=== PATIENT | female | born 1960 | race Caucasian/White ===

== ENCOUNTER 2020-05-19 11:54 | Emergency (ER) | payer OTHER, SELFPAY ==
[2020-05-19 12:28] VITALS: BP 129/82; PULSE 72; RESP 16; TEMP 36.4; O2SAT 100
--- NOTE | 2020-05-19 12:51 | ED.URI ---
HPI - URI/Sore Throat General Chief Complaint: Upper Respiratory Infection Stated Complaint: sore throat Time Seen by Provider: 05/19/20 12:51 Source: patient Mode of arrival: ambulatory Limitations: no limitations History of Present Illness HPI Narrative: Marlyn Valverde is a 59 yo female withno PMH who [facility] with 3 days of sore throat and runny nose, denies fever, denies nausea vomiting or diarrhea, denies breathing problems, states that sore throat is getting worse. She is around her grandchild and daughter who also has a similar symptoms nobody has been screened for Covid and no one intends to take the vaccine at this moment Related Data Allergies Allergy/AdvReac Type Severity Reaction Status Date / Time codeine Allergy Unknown Unknown Verified 05/19/20 12:17 penicillin G Allergy Unknown Itching Verified 05/19/20 12:17 Penicillins Allergy Unknown ITCHING Verified 05/19/20 12:17 Review of Systems Review of Systems: Narrative: CONSTITUTIONAL: Denies fever, chills, sweats. EYES: Denies visual changes, redness, discharge. ENT: Has rhinorrhea, has congestion, has sore throat, no otalgia. CARDIOVASCULAR: Denies chest pain, palpitations, edema. RESPIRATORY: Denies dyspnea, wheezing, cough GASTROINTESTINAL: Denies abdominal pain, nausea, vomiting, diarrhea. GENITOURINARY: Denies dysuria, hematuria, abnormal discharge SKIN: Denies rash or itching. NEUROLOGIC: Denies numbness, or focal weakness. PSYCHIATRIC: Denies anxiety or depression. PMFSH Past Medical History Medical History No acute medical problems Family History Family History Sibling Family history of lung cancer Family history of primary malignant neoplasm of liver Social History Social History Smoking status: Never smoker Alcohol intake: never Comments At time of signature, I agree with nursing past medical, surgical, social and family history. There is no relevant family history pertinent to the presenting complaint. Exam Narrative: Exam Narrative: GENERAL: This is a well-nourished, well-developed patient, in mild distress. HEAD: normocephalic, atraumatic. EYES:Sclera clear/white. Vision is grossly intact. EARS: External ears normal, auditory canals clear and without drainage, TMs normal without perforation. Hearing grossly intact. NOSE: External nose normal without nasal discharge, nares with redness, mild rhinorrhea. THROAT: Mucous membranes moist, posterior pharynx erythema with redness particularly on the left posterior pharynx NECK: Neck supple, non-tender CARDIOVASCULAR: Regular rate and rhythm without murmurs, gallops, or rubs. RESPIRATORY: Clear to auscultation. Breath sounds equal bilaterally. No wheezes, rales, or rhonchi. GASTROINTESTINAL: Abdomen soft, SKIN: warm, intact with no suspicious lesions or rash, good texture and turgor. NEURO: awake, alert, and oriented to person, place and time. There were no obvious focal neurologic abnormalities. Steady gait EXTREMITIES: Normal range of motion. BACK: Nontender without deformity Course Course Emergency Course: Patient comes to [facility] with complaints of sore throat and runny nose for the last 3 days; daughter and grandson have similar symptoms no one has been vaccinated for Covid Covid done-neg strep done - neg Zyrtec and flonase, cepacol lozenges- salt water gargle as needed for sore throat Vital Signs Vital signs: Vital Signs Temperature 97.5 F L 05/19/20 12:28 Pulse Rate 72 05/19/20 12:28 Respiratory Rate 16 05/19/20 12:28 Blood Pressure 129/82 05/19/20 12:28 Pulse Oximetry 100 05/19/20 12:28 Temperature 97.5 F L 05/19/20 12:28 Pulse Rate 72 05/19/20 12:28 Respiratory Rate 16 05/19/20 12:28 Blood Pressure 129/82 05/19/20 12:28 Pulse Oximetry 100 05/19/20 12:28
== END 2020-05-19 13:29 | disposition home or self-care (01) ==
PROVIDERS: Emergency Provider Nurse Practitioner; PCP Internal Medicine
DX: J06.9 Acute upper respiratory infection, unspecified (principal); Z20.822 Contact with and (suspected) exposure to COVID-19; E78.00 Pure hypercholesterolemia, unspecified
CPT/HCPCS: 87081; 87426; 87880; 99213; C9803; G0463

== ENCOUNTER 2021-10-03 15:05 | Outpatient (CLI) | payer OTHER, SELFPAY ==
--- NOTE | ~2021-10-03 | US_ITS ---
EXAMINATION: US pelvic complete w TV DATE: 10/03/2021 16:12 INDICATION: Pelvic pain. TECHNIQUE: Multiple transabdominal sonographic images of the pelvis were obtained. COMPARISON: None. FINDINGS: The uterus measures 8.6 x 3.0 x 4.7 cm. There is no free fluid in the pelvis. The endometrial complex measures 2 mm in thickness. The right ovary measures 2.7 x 1.2 x 1.2 cm. The left ovary measures 1.3 cm. IMPRESSION: 1. Normal pelvis. Reviewed, dictated and finalized at location A. IMPRESSION: 1. Normal pelvis.
== END 2021-10-03 15:06 | disposition home or self-care (01) ==
PROVIDERS: PCP Internal Medicine; Visit Provider Nurse Practitioner
DX: R10.2 Pelvic and perineal pain (principal)
CPT/HCPCS: 76830; 76856

== ENCOUNTER 2021-10-06 17:04 | Outpatient (CLI) | payer OTHER, SELFPAY ==
--- NOTE | ~2021-10-06 | XR_ITS ---
EXAMINATION: XR hip LT min 3V w AP pelvis DATE: 10/06/2021 17:25 INDICATION: Left hip pain. TECHNIQUE: An anteroposterior view of the pelvis and 3 views of left hip were obtained. COMPARISON: None. FINDINGS: Bone alignment is normal. No fracture. There is mild osteoarthritis of the hips characteriz ed by tiny osteophytes. No joint space narrowing. IMPRESSION: 1. Mild osteoarthritis of the hips. Reviewed, dictated and finalized at location A.
== END 2021-10-06 17:05 | disposition home or self-care (01) ==
PROVIDERS: PCP Internal Medicine; Visit Provider Internal Medicine
DX: M25.552 Pain in left hip (principal); M16.0 Bilateral primary osteoarthritis of hip
CPT/HCPCS: 73502

== ENCOUNTER 2021-12-20 15:30 | Outpatient (RCR) | payer OTHER, SELFPAY ==
--- NOTE | 2021-11-14 11:59 | PTOPEVAL1 ---
Assessment and note entered by Leah Prasad, PT Evaluation Information Assessment Status Evaluation Diagnosis L trochanteric bursitis, L SI joint pain Reported Pain Level Pain Score 2: Self Report Additional Pain Score Comments Few months back missed a few steps then landed hard on left leg. Steroid shot about a month ago and the pain has improved pain significantly. Some days are better then others. Feels maybe 80-90% improved. Assessment PT Clinical Summary Pt presents after loosing footing on a ladder a few months ago. Reports approx one month ago recieved shots in left low back and left hip which helped her pain significantly. She reports she still has pain that varies from 0-7/10 in intensity. Evaluation shows leg length difference with R inominate depression, (+) FADDIR testing bilat, decreased range on R hip flexion compared to left, full lumbar AROM without increased pain. Pt also demo's poor lumbopelvic stabilizer strength jeremy transverse abdominal musculature. 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 Muscle energy technique today was able to correct alignment however pt educated likely would return to poor alignment secondary to weakness in stabilizer musculature. Thus Pt will benefit from physical therapy to continue to reassess pelvic alignment, correction of alignment, strengthening of lumbopelvic musculature, and education/ empowerment to maintain alignment independently. Plan of Care Interventions Electrical Stimulation,Hot Pack/Cold Pack,Manual Therapy,Neuro Re-education,Therapeutic Activities, Therapeutic Exercise,Self-Care/Home Management, Ultrasound Other Interventions Taping, possible SI belt to assist in maintaining alignment PT Services Indicated Yes Treatment Frequency and 2x weekly x 4 weeks Duration These treatments will address the objective and functional deficits as defined above. The patient will be advanced safely and appropriately in order for the patient to progress towards his/her prior level of function. Additional exercises will be introduced and as well as a comprehensive home exercise program upon discharge, if needed, ?to ensure carryover of functional gains achieved in the clinic. This treatment plan has been reviewed and agreement upon by the patient.
--- NOTE | 2021-11-14 12:37 | PTOPEVAL1 ---
Assessment and note entered by Leah Prasad, PT Evaluation Information Assessment Status Evaluation Diagnosis L trochanteric bursitis, L SI joint pain Reported Pain Level Pain Score 2: Self Report Additional Pain Score Comments Few months back missed a few steps then landed hard on left leg. Steroid shot about a month ago and the pain has improved pain significantly. Some days are better then others. Feels maybe 80-90% improved. Assessment PT Clinical Summary Pt presents after loosing footing on a ladder a few months ago. Reports approx one month ago received shots in left low back and left hip which helped her pain significantly. She reports she still has pain that varies from 0-7/10 in intensity. Evaluation shows leg length difference with R inominate depression, (+) FADDIR testing bilat, decreased range on R hip flexion compared to left, full lumbar AROM without increased pain. Pt also demo's poor lumbopelvic stabilizer strength jeremy transverse abdominal musculature. 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 Muscle energry technique today was able to correct alignment however pt educated likely would return to poor alignment secondary to weakness in stabilizer musculature. Thus Pt will benefit from physical therapy to continue to reassess pelvic alignment, correction of alignment, strengthening of lumbopelvic musculature, and education/ empowerment to maintain alignment independently. Plan of Care Interventions Electrical Stimulation,Hot Pack/Cold Pack,Manual Therapy,Neuro Re-education,Therapeutic Activities, Therapeutic Exercise,Self-Care/Home Management, Ultrasound Other Interventions Taping, possible SI belt to assist in maintaining alignment PT Services Indicated Yes Treatment Frequency and 2x weekly x 4 weeks Duration These treatments will address the objective and functional deficits as defined above. The patient will be advanced safely and appropriately in order for the patient to progress towards his/her prior level of function. Additional exercises will be introduced and as well as a comprehensive home exercise program upon discharge, if needed, ?to ensure carryover of functional gains achieved in the clinic. This treatment plan has been reviewed and agreement upon by the patient.
--- NOTE | 2021-12-20 16:04 | PTOPEVAL1 ---
Assessment and note entered by Taylor Telol, PT Evaluation Information Assessment Status Discharge Diagnosis L trochanteric bursitis, L hip pain Subjective Information Marlyn reports: pain is less, the injections really helped her pain, is better, doing exercises at home, ready to be finished with therapy; Reported Pain Level Pain Score Self Report Additional Pain Score Comments pain range of 0-3/10; bad ache, discomfort in L buttock area; increased pain with standing or sitting too long- sit over few hours or stand 3 hours; decrease pain with ice, stretching and exercises; take tylenol- PRN; Assessment PT Clinical Summary Marlyn has received 11 PT sessions. Compared to the initial evaluation: pain rating has decreased; strength of trunk and hip has improved; flexibility of hip has improved and no longer painful with hip ROM; Education has been completed for HEP and posture correction. The goals were achieved. Discharge PT. She agrees to d/c and is to continue with the exercises. Plan of Care PT Services Indicated No These treatments will address the objective and functional deficits as defined above. The patient will be advanced safely and appropriately in order for the patient to progress towards his/her prior level of function. Additional exercises will be introduced and as well as a comprehensive home exercise program upon discharge, if needed, ?to ensure carryover of functional gains achieved in the clinic. This treatment plan has been reviewed and agreement upon by the patient.
== END 2021-12-21 07:20 | disposition home or self-care (01) ==
LOC: ANHPT 15:30
PROVIDERS: PCP Internal Medicine; Visit Provider Orthopaedic Surgery
DX: M25.552 Pain in left hip (principal)
CPT/HCPCS: 97014; 97110; 97112; 97140; 97161; G0283

== ENCOUNTER 2022-01-22 17:58 | Emergency (ER) | payer OTHER, SELFPAY ==
[2022-01-22 18:09] VITALS: BP 122/70; PULSE 75; RESP 16; TEMP 37.4; O2SAT 99
--- NOTE | 2022-01-22 19:11 | ED.GENADULT ---
HPI - General Adult General Chief complaint: Upper Respiratory Infection Stated complaint: Abdominal Pain/Nausea/ Vomiting/Diarrhea, Cough Time Seen by Provider: 01/22/22 19:11 Source: patient, RN notes reviewed and old records reviewed Mode of arrival: ambulatory Limitations: no limitations History of Present Illness HPI narrative: 61-year-old female presents to the [facility] with complaints cough, sinus congestion since 05/17 this morning. Denies any fevers. Has taken Tylenol cold and Sinus. Patient also concern for her IBS. His wanting further evaluation. He came off her amitriptyline and started on a probiotic 1 week ago. Concern for IBS and wanting further evaluation and testing. Offered to send patient to the emergency room which she declined will follow up with her GI doctor in the morning. Related Data Home Medications Medication Instructions Recorded Confirmed estradiol 1 mg tablet 0.5 mg PO DAILY 04/18/21 01/22/22 medroxyprogesterone 2.5 mg tablet 2.5 mg PO DAILY 04/18/21 01/22/22 pantoprazole 40 mg tablet,delayed 40 mg PO QAM 04/18/21 01/22/22 release spironolactone 50 mg tablet 50 mg PO DAILY 04/18/21 01/22/22 Allergies Allergy/AdvReac Type Severity Reaction Status Date / Time codeine Allergy Unknown Unknown Verified 01/22/22 18:22 penicillin G Allergy Unknown Itching Verified 01/22/22 18:22 Penicillins Allergy Unknown ITCHING Verified 01/22/22 18:22 Review of Systems Review of Systems: All systems reviewed & are unremarkable except as noted in HPI and below Constitutional: Constitutional: Reports no additional constitutional complaints Eyes: Eyes: Reports no additional eye complaints ENT: Reports as per HPI and Reports nasal congestion Cardiovascular: Cardiovascular: Reports no additional cardiovascular complaints, Denies chest pain and Denies dyspnea Respiratory: Respiratory: Reports no additional respiratory complaints, Denies chest congestion, Denies cough and Denies dyspnea Gastrointestinal: Gastrointestinal: Reports as per HPI, Reports abdominal pain, Reports bloating, Denies nausea and Denies vomiting Musculoskeletal: Musculoskeletal: Reports no additional musculoskeletal complaints Integumentary/Breasts: Skin/Breast: Reports system reviewed and no additional complaints, except as docu Neurologic: Reports system reviewed and no additional complaints, except as documented Psychiatric: Psychiatric: Reports no additional psychiatric complaints Allergic/Immunologic: Allergic/Immunologic: Reports no additional allergic/immunologic complaints PMFSH Past Medical History Medical History Hx of gallstones No acute medical problems Surgical History Surgical History History of mastopexy Hx of breast augmentation Hx of carpal tunnel repair Hx of ovarian cystectomy Family History Family History Sibling Family history of lung cancer Family history of primary malignant neoplasm of liver Social History Social History Smoking status: Unknown if ever smoked Alcohol intake: never Comments At the time of my signature, I reviewed and agree with the nursing past medical, surgical, social, and family history. There is no relevant family history pertinent to the patient complaint. Exam Const: General: cooperative, healthy appearing, comfortable, no acute distress, well developed, alert, average body habitus and well nourished Nutritional Appearance: average body habitus and well nourished Orientation/consciousness: patient oriented x3 Limitations: no limitations HENMT: Head: normal to inspection Ears: hearing grossly normal bilaterally and external ears normal Face/Nose/Sinus: Normal external nose present, Normal nares present, Normal nasal mucous membranes and turbinates
== END 2022-01-22 19:37 | disposition home or self-care (01) ==
PROVIDERS: Emergency Provider Nurse Practitioner; PCP Internal Medicine
DX: J06.9 Acute upper respiratory infection, unspecified (principal); K58.9 Irritable bowel syndrome, unspecified; Z20.822 Contact with and (suspected) exposure to COVID-19
CPT/HCPCS: 87426; 87804; 99213; C9803; G0463

== ENCOUNTER 2022-01-30 09:55 | Outpatient (CLI) | payer OTHER, SELFPAY ==
--- NOTE | ~2022-01-30 | CT_ITS ---
EXAMINATION: CT abdomen pelvis wo con DATE: 01/30/2022 10:18 INDICATION: Abdominal pain and weight loss TECHNIQUE: Computed tomography (CT) of the abdomen and pelvis was performed without intravenous contr ast. The dose-length product (DLP) was 215.43 mGy-cm. Automated exposure control and iterative recons truction technique were employed. COMPARISON: None FINDINGS: Minimal dependent atelectasis is present in the lung bases. The heart size is normal. The g allbladder is surgically absent. Punctate calcifications in an otherwise normal spleen likely represe nt healed granulomatous disease. The liver, pancreas, and adrenal glands are normal. No pathologicall y enlarged abdominal or pelvic lymph nodes are identified. There is no free intraperitoneal gas or ev idence of bowel obstruction. There is mild lumbar spondylosis. There is a tiny umbilical hernia conta ining fat. IMPRESSION: 1. No CT correlate for the patient's symptoms. Reviewed, dictated and finalized at location A. TECH
[2022-01-30 10:55] LABS: Basophils Percent Auto 0.4 % (0.2-1.2); Eosinophils Percent Auto 0.4 % (0-4.4); Hematocrit 42.7 % (37.0-47.0); Immature Granulocyte Absolute 0.01 K/mm3 (0.00-0.031); Immature Granulocyte Percent A 0.2 % (0-0.5); Lymphocytes Absolute Auto 1.61 K/mm3 (0.9-3.2); Lymphocytes Percent Auto 28.8 % (18.3-44.2); Mean Corpuscular HGB Conc 32.8 g/dl (32-36); Mean Corpuscular Hemoglobin 30.8 pg (26-34); Mean Corpuscular Volume 94.1 fl (80-100); Mean Platelet Volume 10.5 fl (7.4-10.4); Monocytes Absolute Auto 0.5 K/mm3 (0.1-0.6); Neutrophils Absolute Auto 3.5 K/mm3 (1.3-6.7); Neutrophils Percent Auto 62.2 % (45.5-73.1); Platelet Count Result 234 k/mm3 (150-375); Red Blood Count 4.54 M/mm3 (4.2-5.4); Red Cell Distribution Width 11.9 % (11.5-14.5); White Blood Count 5.6 K/mm3 (4.5-10.0)
[2022-01-30 11:05] LABS: Alanine Aminotransferase 62 U/L (6-35); Albumin Level 4.4 g/dL (3.5-5.1); Alkaline Phosphatase 87 U/L (38-126); Amylase 75 U/L (30-110); Anion Gap 6 mmol/L (8-16); Aspartate Amino Transferase 45 U/L (14-36); Bilirubin,Total 0.5 mg/dL (0.2-1.3); Blood Urea Nitrogen 12 mg/dL (7-17); Calcium 9.2 mg/dL (8.4-10.2); Carbon Dioxide 30 mmol/L (22-30); Chloride 100 mmol/L (98-107); Estimated Glomerular Filt Rate > 60; Glucose 86 mg/dL (65-110); Lipase 90 U/L (23-300); Sodium 136 mmol/L (137-145)
[2022-01-30 11:13] LABS: Add Urine Microscopic? YES; Appearance Urine Slightly Cloudy (Clear); Bilirubin Urine Negative (Negative); Blood Urine Negative (Negative); Color Urine Yellow (Yellow); Glucose Urine UA Negative (Negative); Ketones Urine 1+ mg/dL (Negative); Leukocyte Esterase Ur Negative LEU/UL (NEGATIVE); Nitrate Urine Negative (Negative); Protein Urine Trace mg/dL (Negative); Urobilinogen Urine 0.2 mg/dL (<2.0); pH Urine 6.5 (5.0-9.0)
[2022-01-30 11:19] LABS: Bacteria Urine Trace /hpf; Mucus Urine Heavy /lpf; Squamous Epithelial Cell Urine Many /hpf (Few); WBC Urine 0-3 /hpf (0-3)
== END 2022-01-30 09:56 | disposition home or self-care (01) ==
PROVIDERS: PCP Internal Medicine; Visit Provider Internal Medicine
DX: R10.9 Unspecified abdominal pain (principal)
CPT/HCPCS: 36415; 74176; 80053; 81001; 82150; 83690; 85025

== ENCOUNTER 2022-06-12 14:49 | Outpatient (CLI) | payer OTHER, SELFPAY ==
--- NOTE | ~2022-06-12 | MM_ITS ---
EXAMINATION: MM scrn jaylon implant BI w enrique HISTORY: Screening mammogram TECHNIQUE: Craniocaudal and mediolateral oblique 3-D tomosynthesis images with implant displacement a nd synthetic 2-D images were generated. Craniocaudal and mediolateral oblique views of the breasts wi thout implant displacement were obtained using full field digital mammography. CAD analysis was submi tted and interpreted. COMPARISON: 06/20/2015, 06/16/2014 bilateral implant screening mammogram BREAST PARENCHYMAL COMPOSITION: There are scattered areas of fibroglandular density. FINDINGS: Status post bilateral augmentation mammoplasty. New 4 mm circumscribed mass in the posterior mid inner left breast; diagnostic left mammogram and lef t breast ultrasound examination are recommended. Otherwise there is no evidence of suspicious mass, calcification, or architectural distortion to sugg est malignancy in either breast. There has been no other suspicious interval change. IMPRESSION: 1. New 4 mm mass in the posterior inner mid left breast 2. Diagnostic left mammogram and left breast ultrasound examination are recommended BI-RADS Category 0: Incomplete: Needs additional imaging evaluation. Reviewed, dictated and finalized at location A. IMPRESSION: 1. New 4 mm mass in the posterior inner mid left breast 2. Diagnostic left mammogram and left breast ultrasound examination are recomme nded BI-RADS Category 0: Incomplete: Needs additional imaging evaluation.
== END 2022-06-12 14:50 | disposition home or self-care (01) ==
PROVIDERS: PCP Internal Medicine; Visit Provider Obstetrics & Gynecology Gynecology
DX: Z12.31 Encounter for screening mammogram for malignant neoplasm of breast (principal); N63.20 Unspecified lump in the left breast, unspecified quadrant; Z98.82 Breast implant status
CPT/HCPCS: 77063; 77067

== ENCOUNTER 2022-07-05 12:02 | Outpatient (CLI) | payer OTHER, SELFPAY ==
--- NOTE | ~2022-07-05 | MMUS_ITS ---
EXAMINATION: MM diag jaylon implant LT w enrique, US breast LT limited HISTORY: Possible left breast mass on screening mammogram TECHNIQUE: Additional 3-D tomosynthesis images with implant displacement of the left breast were perf ormed and synthetic 2-D images were generated. Mediolateral view of the left breast without implant displacement was obtained using full field digital mammography. CAD analysis was submitted and interp reted. High resolution limited left breast ultrasound was performed. COMPARISON: 06/12/2022, 06/20/2015, 06/16/2014 FINDINGS: MAMMOGRAPHIC FINDINGS: There is a 6 mm oval, circumscribed, equal density mass in the middle third of the inner breast at th e 9:00 location, 7 cm from the nipple. ULTRASOUND: There is a small left breast cyst corresponding to the mammographic finding in question. No suspiciou s cystic or solid mass is identified. IMPRESSION: 1. No mammographic or sonographic evidence of malignancy. 2. Recommend routine screening mammography in one year. BI-RADS Category 2: Benign finding(s). Reviewed, dictated and finalized at location A. IMPRESSION: 1. No mammographic or sonographic evidence of malignancy. 2. Recommend routine screening mammography in one year. BI-RADS Category 2: Benign finding(s).
== END 2022-07-05 12:03 | disposition home or self-care (01) ==
PROVIDERS: PCP Internal Medicine; Visit Provider Obstetrics & Gynecology Gynecology
DX: R92.8 Other abnormal and inconclusive findings on diagnostic imaging of breast (principal)
CPT/HCPCS: 76642; 77061; 77065; G0279

== ENCOUNTER 2022-09-11 12:38 | Outpatient (CLI) | payer OTHER, SELFPAY ==
--- NOTE | ~2022-09-11 | CT_ITS ---
Non-contrast Head CT History: Headache Technique: Axial non-contrast imaging of the brain was performed. Dose reduction technique was used on this scan by utilizing automated exposure control and iterative reconstruction technique. The dose -length product (DLP) was 605.33 mGy-cm. Findings: There is no evidence of intracranial hemorrhage, mass lesion, or acute infarct. Brain par enchyma appears normal. The ventricles and subarachnoid spaces are normal in size. The calvarium ap pears normal. The visualized paranasal sinuses and mastoid air cells are clear. Impression: No significant abnormality seen. Reviewed, dictated and finalized at location . Impression: No significant abnormality seen.
== END 2022-09-11 12:39 | disposition home or self-care (01) ==
PROVIDERS: PCP Internal Medicine; Visit Provider Internal Medicine
DX: R51.9 Headache, unspecified (principal)
CPT/HCPCS: 70450

== ENCOUNTER 2023-01-08 14:15 | Outpatient (RCR) | payer OTHER, SELFPAY ==
--- NOTE | 2022-11-21 10:39 | OPREHPOC ---
Outpatient Therapy Plan of Care This is a Multidisciplinary Plan of Care that may contain components documented by all disciplines (PT, OT, and ST.) PT Problem 1 PT Problem #1 Knowledge Deficit PT Goal 1 Goal Pt to be IND with issued HEP Target Visit 4 PT Problem 2 PT Problem #2 Pain PT Goal 1 Goal Pt to report pain no greater than 3/10 in the last week. Target Visit 4 PT Goal 2 Goal Pt to report 75% improvement in overall symptoms. Target Visit 4 PT Problem 3 PT Problem #3 Impaired Strength PT Goal 1 Goal Pt to improve hip abduction strength to grossly 4+ /5 Target Visit 4 PT Goal 2 Goal Pt to be able to lift 30lb from ground level without compensations. Target Visit 4
--- NOTE | 2022-11-21 10:39 | PTOPEVAL1 ---
Assessment and note entered by Mitchell Estrada, PT, DPT Evaluation Information Assessment Status Evaluation Diagnosis ez hip pain Onset 3 months Subjective Information Pt states she has been having ez hip pain for multiple months. She states she got in injection last week and this really seemed to help. She states prior to the injection she was barely able to walk. She states she recently joined a gym. Pt is retired. Reported Pain Level Pain Score 4: Self Report Assessment PT Clinical Summary Marlyn presents to therapy today for her initial evaluation with a diagnosis of ez hip pain. Today she demonstrates good hip ROM ez, with minor decreases in hip strength ez, especially hip abduction strength. She demonstrates significant tenderness to palpation of ez piriformis muscles. Skilled therapy services are indicated to address the deficits noted above, to improve hip strength, and to return to PLOF without limitations. Plan of Care Interventions Electrical Stimulation,Gait Training,Hot Pack/Cold Pack,Manual Therapy,Neuro Re-education,Patient/ Caregiver Educati,Therapeutic Activities, Therapeutic Exercise,Ultrasound PT Services Indicated Yes Treatment Frequency and 1x/wk for 4 visits Duration These treatments will address the objective and functional deficits as defined above. The patient will be advanced safely and appropriately in order for the patient to progress towards his/her prior level of function. Additional exercises will be introduced and as well as a comprehensive home exercise program upon discharge, if needed, ?to ensure carryover of functional gains achieved in the clinic. This treatment plan has been reviewed and agreement upon by the patient.
--- NOTE | 2022-12-19 13:30 | PTOPPROG ---
Assessment and note entered by Mitchell Estrada, PT, DPT Evaluation Information Assessment Status Progress Diagnosis ez hip pain Onset 3 months Subjective Information Pt states she has been doing well, but continues to have good days and bad days. Pt states she cannot tell if she has made any progress with therapy, but reports more good days then bad. She states she is still going to the gym 4x a week. Pt states she had sculpture injections and states these were around the same time her pain started in the same location. Assessment PT Clinical Summary Marlyn presents to therapy today for her progress report following 4 visits of skilled therapy to treat her diagnosis of ez hip pain. Today she continues to have decreased hip strength in all planes. She also continues to have significant tenderness to palpation in her ez piriformis muscle belly. Continuation of therapy services are indicated to address the deficts noted above, to improve hip strength, to decreased pain, and to return to PLOF without limitations. Plan of Care Interventions Electrical Stimulation,Gait Training,Hot Pack/Cold Pack,Manual Therapy,Neuro Re-education,Patient/ Caregiver Educati,Therapeutic Activities, Therapeutic Exercise,Ultrasound PT Services Indicated Yes Treatment Frequency and 1x/wk for 4 visits Duration These treatments will address the objective and functional deficits as defined above. The patient will be advanced safely and appropriately in order for the patient to progress towards his/her prior level of function. Additional exercises will be introduced and as well as a comprehensive home exercise program upon discharge, if needed, ?to ensure carryover of functional gains achieved in the clinic. This treatment plan has been reviewed and agreement upon by the patient.
--- NOTE | 2023-02-01 08:03 | PCPTNOTE ---
Patient called & cancelled scheduled appointment this date due to having Covid. She also states she wants to get an MRI prior to returning.
--- NOTE | 2023-02-15 13:51 | PTOPDC ---
Assessment and note entered by Mitchell Estrada, PT, DPT Evaluation Information Assessment Status Discharge - Pt Not Present Diagnosis ez hip pain Onset 3 months Subjective Information Called pt to follow up, she states she had her MRI but has no follow up scheduled. She states she plans to come back to therapy if her doctor recommends it. Assessment PT Clinical Summary Pt will be discharged at this time.
== END 2023-02-15 15:28 | disposition home or self-care (01) ==
LOC: ANHGOSHPT 14:15
PROVIDERS: PCP Internal Medicine; Visit Provider Physician Assistant Surgical
DX: M70.61 Trochanteric bursitis, right hip (principal)
CPT/HCPCS: 97110; 97140; 97161; 97530

== ENCOUNTER 2023-01-12 15:44 | Emergency (ER) | payer OTHER, SELFPAY ==
--- NOTE | 2023-01-12 15:47 | ED.URI ---
HPI - URI/Sore Throat General Chief Complaint: Upper Respiratory Infection Stated Complaint: Headache, Body Aches, Chills Time Seen by Provider: 01/12/23 16:10 Source: patient and RN notes reviewed Mode of arrival: ambulatory Limitations: no limitations History of Present Illness HPI Narrative: 62-year-old female presents concern for headache, cough, runny nose, body aches started last night. She reports she is taking Tylenol. She denies nausea, vomiting, diarrhea. MD elicited complaint: cough and nasal congestion Related Data Home Medications Medication Instructions Recorded Confirmed estradiol 1 mg tablet 0.5 mg PO DAILY 04/18/21 01/12/23 medroxyprogesterone 2.5 mg tablet 2.5 mg PO DAILY 04/18/21 01/12/23 pantoprazole 40 mg tablet,delayed 40 mg PO QAM 04/18/21 01/12/23 release spironolactone 50 mg tablet 50 mg PO DAILY 04/18/21 01/12/23 amitriptyline 10 mg tablet 10 mg PO QHS 02/05/22 01/12/23 montelukast 10 mg tablet mg 01/12/23 Allergies Allergy/AdvReac Type Severity Reaction Status Date / Time codeine Allergy Unknown Unknown Verified 01/12/23 15:57 Penicillins Allergy Unknown ITCHING Verified 01/12/23 15:57 Review of Systems Review of Systems: CONSTITUTIONAL: Reports malaise, chills, sweats EYES: Denies visual changes, redness, or discharge. ENT: Reports rhinorrhea, congestion, and sore throat. CARDIOVASCULAR: Denies chest pain, palpitations, or edema. RESPIRATORY: Reports cough. Denies dyspnea. GASTROINTESTINAL: Denies abdominal pain, nausea, vomiting, diarrhea SKIN: Denies rash or itching. MUSCULOSKELETAL: Reports myalgia. NEUROLOGIC: Reports headache. All systems reviewed & are unremarkable except as noted in HPI and below PMFSH Past Medical History Medical History (Updated 01/12/23 @ 16:21 by Lavern Vasquez NP) GERD (gastroesophageal reflux disease) Hx of gallstones No acute medical problems Surgical History Surgical History History of mastopexy Hx of breast augmentation Hx of carpal tunnel repair Hx of ovarian cystectomy Family History Family History Sibling Family history of lung cancer Family history of primary malignant neoplasm of liver Social History Social History Smoking status: Unknown if ever smoked Alcohol intake: never Comments At time of signature, agree with nursing past medical, surgical, social and family history. There is no relevant family history pertinent to the presenting complaint Exam Narrative: GENERAL: Nontoxic appearing and in no acute distress. HEAD: Normocephalic EYES: PERRLA, conjunctivae clear ENT: Nares clear, turbinates edematous and erythematous, clear discharge. Mucous membranes moist. TM pearly white with dull light reflex bilaterally; no tragal tenderness. Oropharynx not erythematous without lesions. Tonsils not enlarged and without exudate, no drooling, no hoarseness, no trismus, uvula midline. NECK: Supple. No lymphadenopathy CHEST: Clear to auscultation, breath sounds equal. No wheezing, rhonchi, rales, or stridor. No respiratory distress, speaks in full sentences. HEART: Regular rate and rhythm. No murmur heard. SKIN: Warm, dry, no rash. NEURO: Alert and oriented x3. PSYCH: Normal mood and affect Course Course Emergency Course: Patient is aware of diagnosis, understands and agrees to treatment plan. Anticipatory guidance given. Patient agrees to follow-up as directed and is aware of reasons to seek care at the emergency department. Portions of this record may have been created with voice recognition software Level of Care: Express Care Visit Vital Signs Vital signs: Reviewed. MDM - URI/Sore Throat MDM Narrative Medical decision making narrative: Differential diagnosis considered: Evans virus, strep pharyngitis, allergic rhinitis, upper respiratory trac
[2023-01-12 15:58] VITALS: BP 124/78; PULSE 89; RESP 18; TEMP 36.6; O2SAT 99
== END 2023-01-12 16:27 | disposition home or self-care (01) ==
PROVIDERS: Emergency Provider Nurse Practitioner; PCP Internal Medicine
DX: U07.1 COVID-19 (principal); Z79.899 Other long term (current) drug therapy
CPT/HCPCS: 87426; 87804; 99213; C9803; G0463

== ENCOUNTER 2023-01-19 14:25 | Emergency (ER) | payer OTHER, SELFPAY ==
--- NOTE | ~2023-01-19 | XR_ITS ---
EXAMINATION: XR chest 2V 01/19/2023 14:49 INDICATION: Covid infection PROCEDURE: 2 view chest COMPARISON: No prior studies for comparison. FINDINGS: The lungs are clear. The cardiomediastinal silhouette is within normal limits. There are no pleural effusions. There is no pneumothorax suspected. IMPRESSION: 1: NO ACUTE CARDIOPULMONARY DISEASE. Reviewed, dictated and finalized at location A. MER BLOCKER
--- NOTE | 2023-01-19 14:29 | ECG_ITS ---
Measurements Intervals Crane Rate: 76 P: 70 IL: 149 QRS: 58 QRSD: 86 T: 74 QT: 358 QTc: 405 Interpretive Statements SINUS RHYTHM NONSPECIFIC T-WAVE ABNORMALITY BORDERLINE ECG NO PREVIOUS ECG AVAILABLE FOR COMPARISON Electronically Signed On 01-20-2023 11:47:45 AIR MOTOR REPAIRER by Sulaiman Glaser M.D.
[2023-01-19 14:38] VITALS: BP 129/79; PULSE 79; RESP 18; TEMP 36.6; O2SAT 100
[2023-01-19 14:49] LABS: Eosinophils Percent Auto 0.3 % (0-4.4); Hematocrit 43.1 % (37.0-47.0); Hemoglobin 13.9 g/dL (12.0-15.0); Immature Granulocyte Absolute 0.01 K/mm3 (0.00-0.031); Immature Granulocyte Percent A 0.3 % (0-0.5); Lymphocytes Percent Auto 35.9 % (18.3-44.2); Mean Corpuscular HGB Conc 32.3 g/dl (32-36); Mean Corpuscular Hemoglobin 29.3 pg (26-34); Mean Corpuscular Volume 90.7 fl (80-100); Mean Platelet Volume 10.2 fl (7.4-10.4); Monocytes Absolute Auto 0.4 K/mm3 (0.1-0.6); Monocytes Percent Auto 9.7 % (2.6-8.5); Neutrophils Percent Auto 53.8 % (45.5-73.1); Platelet Count Result 189 k/mm3 (150-375); Red Blood Count 4.75 M/mm3 (4.2-5.4); White Blood Count 3.6 K/mm3 (4.5-10.0)
[2023-01-19 15:05] LABS: Alanine Aminotransferase 271 U/L (6-35); Albumin Level 4.5 g/dL (3.5-5.1); Alkaline Phosphatase 144 U/L (38-126); Anion Gap 14 mmol/L (8-16); Aspartate Amino Transferase 184 U/L (14-36); Bilirubin,Total 0.6 mg/dL (0.2-1.3); Blood Urea Nitrogen 8 mg/dL (7-17); Calcium 9.8 mg/dL (8.4-10.2); Carbon Dioxide 22 mmol/L (22-30); Chloride 101 mmol/L (98-107); Estimated CRCL calculation 57 ml/min; Estimated Glomerular Filt Rate > 60; Glucose 101 mg/dL (65-110); Lipase 110 U/L (23-300); Potassium 4.1 mmol/L (3.4-5.0); Sodium 137 mmol/L (137-145)
[2023-01-19 15:13] LABS: INR 0.9; Partial Thromboplastin Time 25.6 SECONDS (22.3-36.8); Prothrombin Time 12.7 Seconds (11.1-14.7)
[2023-01-19 15:16] LABS: Troponin I < 0.012 ng/mL (0.000-0.034)
--- NOTE | 2023-01-19 18:06 | ED.GENADULT ---
HPI - General Adult General Chief complaint: Chest Pain Stated complaint: covid/ chest pain Time Seen by Provider: 01/19/23 17:48 Source: patient Mode of arrival: ambulatory Limitations: no limitations History of Present Illness HPI narrative: This is a 62-year-old female With PMH of IBS who presents to the ED with chief complaint of chest pain across the entire chest beginning yesterday and worse today. Reports she was COVID positive 7 days ago and since then has been having intermittent feelings of chest tightness and pain. Reports the pain seems to radiate/ wrap bilaterally around the chest and back. reports some cough but overall nonproductive. Denies hemoptysis, leg swelling, palpitations, abdominal pain, fevers, chills. Does take estradiol hormone. Related Data Home Medications Medication Instructions Recorded Confirmed estradiol 1 mg tablet 0.5 mg PO DAILY 04/18/21 01/12/23 medroxyprogesterone 2.5 mg tablet 2.5 mg PO DAILY 04/18/21 01/12/23 pantoprazole 40 mg tablet,delayed 40 mg PO QAM 04/18/21 01/12/23 release spironolactone 50 mg tablet 50 mg PO DAILY 04/18/21 01/12/23 amitriptyline 10 mg tablet 10 mg PO QHS 02/05/22 01/12/23 montelukast 10 mg tablet mg 01/12/23 Allergies Allergy/AdvReac Type Severity Reaction Status Date / Time codeine Allergy Unknown Unknown Verified 01/12/23 15:57 Penicillins Allergy Unknown ITCHING Verified 01/12/23 15:57 Review of Systems Review of Systems: All systems as dictated in [facility] Past Medical History Medical History (Updated 01/20/23 @ 00:00 by Kristal Royal) GERD (gastroesophageal reflux disease) Hx of gallstones No acute medical problems Surgical History Surgical History History of mastopexy Hx of breast augmentation Hx of carpal tunnel repair Hx of ovarian cystectomy Family History Family History Sibling Family history of lung cancer Family history of primary malignant neoplasm of liver Social History Social History Smoking status: Unknown if ever smoked Alcohol intake: never Exam Narrative: GENERAL: Well-appearing, well-nourished, and in no acute distress. HEAD: Normocephalic, atraumatic. EYES: PERRLA and EOMI. ENT: Nares clear, no rhinorrhea or epistaxis. Mucous membranes moist. Oropharynx without tonsillar hypertrophy exudate or other lesions. NECK: Supple. No adenopathy or masses. CHEST: No respiratory distress. Clear to auscultation. No wheezes rales or Rhonchi. mild chest wall tenderness bilaterally. HEART: Regular rate and rhythm. No murmur heard. Normal peripheral pulses. ABDOMEN: Soft, nontender, nondistended, normal active bowel sounds. MSK: Normal range of motion. No edema. Mild tenderness to the bilateral trapezius distributions. No midline spinal tenderness SKIN: Warm, dry, no rash. NEURO: Alert and oriented x3. No focal deficits. PSYCH: Normal mood and affect. Course Vital Signs Vital signs: Vital Signs Temperature 98 F 01/19/23 14:38 Pulse Rate 79 01/19/23 14:38 Respiratory Rate 18 01/19/23 14:38 Blood Pressure 129/79 01/19/23 14:38 Pulse Oximetry 100 01/19/23 14:38 Temperature 98.1 F 01/19/23 18:50 Pulse Rate 76 01/19/23 18:50 Respiratory Rate 18 01/19/23 18:50 Blood Pressure 150/73 H 01/19/23 18:50 Pulse Oximetry 100 01/19/23 18:50 Oxygen Delivery Room Air 01/19/23 18:48 Medical Decision Making [facility] Narrative Medical decision making narrative: This is a 62-year-old female who presents to the ED with chief complaint of A chest pain. She has been COVID positive for the past week. Vitals are normal. exam only remarkable for mild chest wall and back musculoskeletal tenderness. EKG shows normal sinus rhythm. Lab work shows slight elevation and transaminases. She gomez
[2023-01-19 18:28] LABS: Troponin I < 0.012 ng/mL (0.000-0.034)
--- NOTE | 2023-01-19 18:45 | PC.NURSE ---
Pt refusing Aspirin. States she has Chrons disease and doesn't take aspirin. RN explained rationale for Aspirin with chest pain, continues to refuse. Jourdan PRINGLE informed
[2023-01-19 18:48] VITALS: O2SAT 100
[2023-01-19 18:50] VITALS: BP 150/73; PULSE 76; RESP 18; TEMP 36.7; O2SAT 100
--- NOTE | 2023-01-19 19:25 | PC.NURSE ---
Report received from RYAN Antoine. Assumed care of patient at this time.
[2023-01-19 19:27] LABS: D Dimer 0.35 ug/mL (<0.48)
== END 2023-01-19 19:37 | disposition home or self-care (01) ==
PROVIDERS: Student in an Organized Health Care Education/Training Program; Emergency Provider Physician Assistant; PCP Internal Medicine
DX: U07.1 COVID-19 (principal); R07.89 Other chest pain; K58.9 Irritable bowel syndrome, unspecified; K21.9 Gastro-esophageal reflux disease without esophagitis; R94.31 Abnormal electrocardiogram [ECG] [EKG]
CPT/HCPCS: 36415; 71046; 80053; 83690; 84484; 85025; 85380; 85610; 85730; 93005; 99284

== ENCOUNTER 2023-02-13 14:24 | Outpatient (CLI) | payer OTHER, SELFPAY ==
--- NOTE | ~2023-02-13 | MR_ITS ---
EXAMINATION: MR hip RT wo con DATE: 02/13/2023 16:04 INDICATION: Right hip pain TECHNIQUE: Magnetic resonance imaging (MRI) of the right hip was performed without intravenous contr ast. Sequences included full-field axial PD-weighted FS FSE and T1-weighted FSE, coronal of the pelvi s with PD-weighted FS FSE, T2-weighted FSE and T1-weighted FSE, small field of view of the right hip with axial PD-weighted FS FSE, sagittal PD-weighted FS FSE, coronal PD-weighted FS FSE and coronal T 2 weighted FSE. Additional radial T1-weighted FGR oriented orthogonal to the acetabular rim were obta ined for evaluation of the labrum. COMPARISON: None FINDINGS: Bones/labrum/cartilage: Alignment is normal. No fracture, avascular necrosis or pathologic marrow replacing process. Mild os teoarthritis at the left hip with partial-thickness chondral ulceration at the apex of the right femo ral head without degenerative subchondral changes. Relatively symmetric findings suggested at the con tralateral left hip but not diagnostically evaluated on the larger few images. Tear at the 1:30 posit ion of the anterosuperior right acetabular labrum. There is an associated para labral cyst measuring 2.2 x 1.4 0.4 cm which extends anterior to the right femoral head. There is degeneration of the more posterior superolateral right acetabular labrum which appears mildly thickened with increased intrasu bstance signal which does not appear to extend to the periphery of the labrum. Fluid: Symmetric physiologic amount of fluid within both hip joints. Asymmetric mild increased fluid signal overlying the right greater trochanter consistent with mild right and minimal left trochanteric bursi tis. Soft tissues: Normal and symmetric muscle bulk and signal in the pelvis and visualized proximal thighs. The bilater al iliopsoas tendons are normal. There is mild tendinopathy without tear at the ischial tuberosity or igins of the bilateral proximal semimembranosus tendons. The bilateral conjoined biceps femoris and s emitendinosus tendon are normal. There is also mild tendinopathy without tear of the bilateral gluteu s minimus tendons. Small globular low signal intensity enthesopathic ossicle at the right greater tro chanteric insertion of the otherwise normal right gluteus medius tendon. The left gluteus medius tend on is normal. Limited evaluation of visceral organs of the pelvis is unremarkable. No pathologically enlarged pelvic/inguinal lymphadenopathy. IMPRESSION: 1. Mild right hip osteoarthritis with paralabral cyst anterior to the right femoral head arising from a tear at the anterosuperior right acetabular labrum. 2. Mild right and minimal left trochanteric bursitis and relatively symmetric mild tendinopathy witho ut tears of the bilateral gluteus minimus tendons. 3. Relative symmetric mild tendinopathy without tear at the bilateral ischial tuberosity origins of t he semimembranosus tendons. Reviewed, dictated and finalized at location A. RUMENTATION FITTER IMPRESSION: 1. Mild right hip osteoarthritis with paralabral cyst anterior to the right fem oral head arising from a tear at the anterosuperior right acetabular labrum. 2. Mild right and minimal left trochanteric bursitis and relatively symmetric m ild tendinopathy without tears of the bilateral gluteus minimus tendons. 3. Relative symmetric mild tendinopathy without tear at the bilateral ischial t uberosity origins of the semimembranosus tendons.
== END 2023-02-13 14:25 | disposition home or self-care (01) ==
PROVIDERS: PCP Internal Medicine; Visit Provider Physician Assistant Surgical
DX: M16.11 Unilateral primary osteoarthritis, right hip (principal); M70.61 Trochanteric bursitis, right hip; M76.01 Gluteal tendinitis, right hip; M24.851 Other specific joint derangements of right hip, not elsewhere classified
CPT/HCPCS: 73721

== ENCOUNTER 2023-02-27 08:54 | Outpatient (CLI) | payer OTHER, SELFPAY ==
--- NOTE | ~2023-02-27 | US_ITS ---
Limited Abdominal Sonogram: Real-time sonographic imaging of the right upper quadrant was performed. Clinical History: Abnormal LFTs Findings: The liver appears normal with no evidence of bile duct dilatation. There is a 10 mm hypere choic mass in the right hepatic lobe. Main portal vein demonstrates normal direction of flow. The gal lbladder is absent, compatible prior cholecystectomy. The common bile duct measures 8 mm. The visual ized pancreas, aorta, and IVC are unremarkable. Impression: Status post cystectomy. 9 mm hyperechoic mass is most likely a small hepatic hemangioma. Reviewed, dictated and finalized at location M. ERCIAL REAL ESTATE ASSISTANT Impression: Status post cystectomy. 9 mm hyperechoic mass is most likely a small hepatic hemangioma.
== END 2023-02-27 08:55 | disposition home or self-care (01) ==
PROVIDERS: PCP Internal Medicine; Visit Provider Internal Medicine
DX: R94.5 Abnormal results of liver function studies (principal); Z90.49 Acquired absence of other specified parts of digestive tract
CPT/HCPCS: 76705

== ENCOUNTER 2023-03-05 15:36 | Outpatient (CLI) | payer OTHER, SELFPAY ==
--- NOTE | ~2023-03-05 | MR_ITS ---
EXAMINATION: MR hip LT wo con DATE: 03/05/2023 16:53 INDICATION: Left hip pain. TECHNIQUE: Magnetic resonance imaging (MRI) of the left hip was performed without intravenous contras t. COMPARISON: None FINDINGS: Bones/cartilage: Bone alignment is normal. No fracture. Right hip demonstrates shallow partial-thickness cartilage los s and small osteophytes.. Small [id number] images of left hip demonstrate deep partial thickness c artilage loss superiorly and small osteophytes. Labrum: There is a tear of left acetabular labrum. Fluid: There is no hip joint effusion. There is mild bilateral trochanteric bursitis. Soft tissues: There is mild bilateral gluteus minimus and gluteus medius tendinopathy. There is mild tendinopathy o f the hamstring origins bilaterally. The iliopsoas tendons are normal. IMPRESSION: 1. Mild right hip osteoarthritis and moderate left hip osteoarthritis. Reviewed, dictated and finalized at location E. H ROOM TECHNICIAN
== END 2023-03-05 15:37 | disposition home or self-care (01) ==
PROVIDERS: PCP Internal Medicine; Visit Provider Physician Assistant Surgical
DX: M25.552 Pain in left hip (principal); M16.0 Bilateral primary osteoarthritis of hip
CPT/HCPCS: 73721

== ENCOUNTER 2023-04-12 12:40 | Outpatient (CLI) | payer OTHER, SELFPAY ==
--- NOTE | ~2023-04-12 | DEXA_ITS ---
Bone Density Report Name: SACHIN MARIO Age: 62 Sex: Female Ethnicity: White Date of : 1960 Indication: postmenopausal; screening for osteoporosis; parental hip fracture; inflammatory bowel disease; Referring Provider: ALICIA, CARIDAD Study: Bone densitometry was performed. Exam Date: April 12, 2023 Accession number: [id number] Bone Density: Region BMD T-score Z-score Classification AP Spine(L1-L4) 0.905 -1.3 0.3 Osteopenia Femoral Neck (Left) 0.711 -1.2 0.2 Osteopenia Total Hip (Left) 0.894 -0.4 0.7 Normal Femoral Neck (Right) 0.763 -0.8 0.6 Normal Total Hip (Right) 0.912 -0.2 0.9 Normal Total Hip Mean 0.903 -0.3 0.8 Normal World Health Organization criteria for BMD impression classify patients as: Normal (T-score at or above -1.0), Osteopenia (T-score between -1.0 and -2.5), or Osteoporosis (T-score at or below -2.5). 10-year Fracture Risk(1): Major Osteoporotic Fracture 15% Hip Fracture 0.6% Reported Risk Factors: [place] (), Neck BMD=0.711, BMI=24.0, parental fracture (1) FRAX(R) Version 3.08. Fracture probability calculated for an untreated patient. Fracture probability may be lower if the patient has received treatment. Clinical Information Provided by Patient: Parent has had a hip fracture Has used the following medications: Vitamin D, Calcium Has the following medical conditions: Inflammatory bowel diseases Patient maximum height was 61.5 Menopause Age: 52 Drinks caffeinated beverages Onset of menses at age 13 Number of children 5 Impression: The patient has low bone mass, based on the Total Spine T-score. The patient has an estimated ten-year risk of hip fracture of 0.6% and an estimated ten-year risk of major fracture of 15%, based on the WHO FRAX algorithm. The patient has risk factors, including: parental hip fracture. Discussion: BONE DENSITY IS LOW AT ONE OR MORE SKELETAL SITES. This patient's lowest T-score is low at one or more skeletal sites. It meets the World Health Organization's (WHO) criteria for ?low bone mass? (T-score between -1.0 and -2.5). The patient's 10-year risk of fracture as calculated by FRAX is less than the threshold where pharmacological therapy is recommended by the National Osteoporosis Foundation (NOF). However, all treatment decisions require clinical judgment and consideration of individual patient factors, including patient preferences, comorbidities, previous drug use, risk factors not captured in the FRAX model (e.g., frailty, falls, vitamin D deficiency, increased bone turnover, interval significant decline in bone density) and possible under or overestimation of fracture risk by FRAX. The patient should follow a healthful lifestyle (good nutrition with adequate calcium and vitamin D, and appropriate weight-bear
== END 2023-04-12 12:41 | disposition home or self-care (01) ==
LOC: ANHIMG 12:42
PROVIDERS: PCP Internal Medicine; Visit Provider Nurse Practitioner
DX: M85.89 Other specified disorders of bone density and structure, multiple sites (principal)
CPT/HCPCS: 77080

== ENCOUNTER 2023-05-16 14:30 | Outpatient (RCR) | payer OTHER, SELFPAY ==
--- NOTE | 2023-02-25 14:21 | OPREHPOC ---
Outpatient Therapy Plan of Care This is a Multidisciplinary Plan of Care that may contain components documented by all disciplines (PT, OT, and ST.) PT Problem 1 PT Problem #1 Knowledge Deficit PT Goal 1 Goal Pt to be IND with issued HEP Target Visit 8 PT Problem 2 PT Problem #2 Pain PT Goal 1 Goal Pt to report hip pain no greater than 3/10 in the last week. Target Visit 8 PT Goal 2 Goal Pt to report 75% improvement in overall sytptoms. Target Visit 8 PT Problem 3 PT Problem #3 Impaired Range of Motion PT Goal 1 Goal Pt to improve R hip abduction ROM to 45 deg Target Visit 8 PT Goal 2 Goal Pt to decline pain at end ROM with passive hip ROM Target Visit 8 PT Problem 4 PT Problem #4 Impaired Functional Mobil PT Goal 1 Goal Pt to improve LEFS scroe from 45/80 to 65/80 Target Visit 8 PT Goal 2 Goal Pt to be able to stand for 60 mins without needing to sit down d/t pain Target Visit 8
--- NOTE | 2023-02-25 14:21 | PTOPEVAL1 ---
Assessment and note entered by Mitchell Estrada, PT, DPT Evaluation Information Assessment Status Evaluation Diagnosis R hip pain Subjective Information Pt reports ez hip pain, her MRI reports a tear of the acetabular labrum. Pt states she used a machine that caused muscle contraction, she things this is what caused the glute med tendonitis and labral tear. Pt states she has an appointment with an orthopedic surgeon in 2 months. Reported Pain Level Pain Score 4: Self Report Assessment PT Clinical Summary Marlyn presents to therapy today for her initial evaluation with a diagnosis of ez hip pain. Today she demonstrates decreased LE strength throughout BLE, pain with end hip ROM in all direction, and decreased activity tolerance d/t pain. Skilled therapy services are indicated to address the deficits noted above, to manage pain, and to improve overall functional mobility. Plan of Care Interventions Electrical Stimulation,Gait Training,Hot Pack/Cold Pack,Manual Therapy,Neuro Re-education,Patient/ Caregiver Educati,Therapeutic Activities, Therapeutic Exercise PT Services Indicated Yes Treatment Frequency and 1x/wk for 4 weeks Duration These treatments will address the objective and functional deficits as defined above. The patient will be advanced safely and appropriately in order for the patient to progress towards his/her prior level of function. Additional exercises will be introduced and as well as a comprehensive home exercise program upon discharge, if needed, ?to ensure carryover of functional gains achieved in the clinic. This treatment plan has been reviewed and agreement upon by the patient.
--- NOTE | 2023-03-28 13:48 | PCPTNOTE ---
Patient called & cancelled scheduled appointment this date. She has been rescheduled.
--- NOTE | 2023-04-02 16:13 | PTOPPROG ---
Assessment and note entered by Mitchell Estrada, PT, DPT Evaluation Information Assessment Status Progress Diagnosis R hip pain Subjective Information Pt reports she continues to have good days and bad days. She reports less burning sensations than she was having before. She states her pain is dependent on her activity levels. Pt reports good compliance with her HEP. Assessment PT Clinical Summary Marlyn presents to therapy today for her progress report following 5 visits of skilled therapy to treat her with a diagnosis of ez hip pain. Today she minimal improvements since starting. She demonstrates mild ROM improvements in abduction and ext rot without improvements in other directions. Her pain reports have not progressed. D/t poor therapy progress pt would like to follow up with ortho prior to continuing therapy. Plan of Care Interventions Electrical Stimulation,Gait Training,Hot Pack/Cold Pack,Manual Therapy,Neuro Re-education,Patient/ Caregiver Educati,Therapeutic Activities, Therapeutic Exercise PT Services Indicated Yes Treatment Frequency and on hold pending ortho follow up Duration These treatments will address the objective and functional deficits as defined above. The patient will be advanced safely and appropriately in order for the patient to progress towards his/her prior level of function. Additional exercises will be introduced and as well as a comprehensive home exercise program upon discharge, if needed, ?to ensure carryover of functional gains achieved in the clinic. This treatment plan has been reviewed and agreement upon by the patient.
--- NOTE | 2023-05-07 14:13 | PCPTNOTE ---
Patient called & cancelled scheduled appointment this date due to having a migraine. She has been rescheduled.
--- NOTE | 2023-05-16 15:01 | PTOPDC ---
Assessment and note entered by Mitchell Estrada, PT, DPT Evaluation Information Assessment Status Discharge Diagnosis R hip pain Subjective Information Pt states overall her hips are doing really well. Her motion has improved on the R side and she is no longer having pain in her groin. She reports no functional limitations at this time. She states she is able to exercise 3-4 times a week without an increase in pain. She can walk for as far as she wants without an increase in pain. Reported Pain Level Pain Score 0: Self Report Assessment PT Clinical Summary Marlyn presents to therapy today for her progress report following 6 visits of skilled therapy to treat her with a diagnosis of ez hip pain. Today she reports 80-90% return to PLOF. She declines any limitations at this time. She demonstrates R hip strength and ROM that is 90% of her L hip. She has met or progressed well towards her therapy goals and no longer requires skilled services, she will be discharged at this time.
== END 2023-05-16 16:29 | disposition home or self-care (01) ==
LOC: ANHGOSHPT 14:30
PROVIDERS: PCP Internal Medicine; Visit Provider Physician Assistant Surgical
DX: M70.61 Trochanteric bursitis, right hip (principal)
CPT/HCPCS: 97110; 97140; 97161; 97530

== ENCOUNTER 2023-06-21 13:45 | Emergency (ER) | payer OTHER, SELFPAY ==
[2023-06-21 13:55] VITALS: BP 124/70; PULSE 72; RESP 16; TEMP 36.8; O2SAT 99
--- NOTE | 2023-06-21 14:34 | ED.URI ---
HPI - URI/Sore Throat General Chief Complaint: Upper Respiratory Infection Stated Complaint: ear crackling , running nose,drainage,ALDRIDGE Time Seen by Provider: 06/21/23 14:18 Source: patient and RN notes reviewed History of Present Illness HPI Narrative: Patient presents today complaining of a 2 week history of headache, congestion, sneezing, rhinorrhea, sneezing, watery eyes, crackling in the ears. Denies cough, fever, shortness of breath. She has been taking Tylenol, Flonase, allergy medicine, and Singulair without much relief. Related Data Home Medications Medication Instructions Recorded Confirmed estradiol 1 mg tablet 0.5 mg PO DAILY 04/18/21 06/21/23 medroxyprogesterone 2.5 mg tablet 2.5 mg PO DAILY 04/18/21 06/21/23 pantoprazole 40 mg tablet,delayed 40 mg PO QAM 04/18/21 06/21/23 release spironolactone 50 mg tablet 50 mg PO DAILY 04/18/21 06/21/23 amitriptyline 10 mg tablet 10 mg PO QHS 02/05/22 06/21/23 montelukast 10 mg tablet 10 mg PO DAILY 01/12/23 06/21/23 fluticasone propionate 50 1 spray intranasal DAILY 06/21/23 06/21/23 mcg/actuation nasal spray,suspension Allergies Allergy/AdvReac Type Severity Reaction Status Date / Time Penicillins Allergy Intermediate ITCHING Verified 06/21/23 13:52 codeine Allergy Unknown Unknown Verified 06/21/23 13:52 prednisone AdvReac Intermediate Other Verified 06/21/23 14:38 Review of Systems Review of Systems: CONSTITUTIONAL: Denies body aches, fever, chills, or sweats. EYES: Denies visual changes, redness, or discharge.+ watery eyes ENT: Denies sore throat, or otalgia.+ congestion, rhinorrhea, sneezing CARDIOVASCULAR: Denies chest pain, palpitations, or edema. RESPIRATORY: Denies cough or dyspnea. GASTROINTESTINAL: Denies abdominal pain, nausea, vomiting, or diarrhea. GENITOURINARY: Denies dysuria or hematuria. SKIN: Denies rash, itching, or wounds. MUSCULOSKELETAL: Denies back pain, joint pain, or myalgia. NEUROLOGIC: Denies numbness, tingling, or weakness.+ headache PSYCH: Denies depression or anxiety. [facility] Past Medical History Medical History (Updated 06/21/23 @ 14:47 by Tess Ornelas, ROSY, ) GERD (gastroesophageal reflux disease) Hx of gallstones Surgical History Surgical History History of mastopexy Hx of breast augmentation Hx of carpal tunnel repair Hx of ovarian cystectomy Family History Family History Sibling Family history of lung cancer Family history of primary malignant neoplasm of liver Social History Social History Smoking status: Unknown if ever smoked Alcohol intake: never Comments At time of signature, I have reviewed and agree with nursing past medical, surgical, social and family history unless otherwise noted. Please see nursing chart for further information. There is no relevant family history pertinent to the presenting complaint Exam Narrative: GENERAL: Well-appearing, well-nourished, and in no acute distress. HEAD: Normocephalic, atraumatic. EYES: EOMI. No redness or drainage. Conjunctivae normal. ENT: Mucous membranes pink and moist. Nares congested with rhinorrhea. Bilateral erythematous and edematous nasal turbinates. TMs normal bilaterally. Throat normal. Uvula midline. NECK: Normal AROM. Supple. No lymphadenopathy. CHEST: No respiratory distress. Clear to auscultation. HEART: Regular rate and rhythm. No murmur appreciated. EXTREMITIES: Normal range of motion. No edema. SKIN: Warm, dry, no rash. Capillary refill normal. Normal skin turgor. NEURO: No focal deficits. Alert and oriented x3. Gait steady. PSYCH: Normal affect. No signs of depression or anxiety. Course Course Level of Care: Express Care Visit Vital Signs Vital signs: Vital Signs Temperature 98.2 F 06/21/23 13:55 Pulse Rate 72
== END 2023-06-21 14:40 | disposition home or self-care (01) ==
PROVIDERS: Emergency Provider Nurse Practitioner; PCP Internal Medicine
DX: J01.90 Acute sinusitis, unspecified (principal); K21.9 Gastro-esophageal reflux disease without esophagitis
CPT/HCPCS: 99213; G0463

== ENCOUNTER 2023-07-06 12:55 | Emergency (ER) | payer OTHER, SELFPAY ==
[2023-07-06 13:17] VITALS: BP 150/89; PULSE 84; RESP 16; TEMP 36.6; O2SAT 99
--- NOTE | 2023-07-06 14:05 | ED.EAR ---
HPI - Ear Problem General Chief complaint: Ear Stated complaint: ringing in ears Time Seen by Provider: 07/06/23 13:30 Source: patient Mode of arrival: ambulatory Limitations: no limitations History of Present Illness HPI Narrative: Marlyn is a 62-year-old female patient presenting to the clinic today with complaints of ringing in her ears, cerumen impaction of her left ear, and ear discomfort. She reports that she was seen in the urgent care and given an antibiotic and that has not helped her symptoms. States she cannot take steroids. Seen her primary care doctor and he told her that she had a lot of cerumen buildup in her left ear-told her to completed debrox ear drops and follow-up on Saturday to have her ear irrigated. Related Data Home Medications Medication Instructions Recorded Confirmed estradiol 1 mg tablet 0.5 mg PO DAILY 04/18/21 06/21/23 medroxyprogesterone 2.5 mg tablet 2.5 mg PO DAILY 04/18/21 06/21/23 pantoprazole 40 mg tablet,delayed 40 mg PO QAM 04/18/21 06/21/23 release spironolactone 50 mg tablet 50 mg PO DAILY 04/18/21 06/21/23 amitriptyline 10 mg tablet 10 mg PO QHS 02/05/22 06/21/23 montelukast 10 mg tablet 10 mg PO DAILY 01/12/23 06/21/23 fluticasone propionate 50 1 spray intranasal DAILY 06/21/23 06/21/23 mcg/actuation nasal spray,suspension Allergies Allergy/AdvReac Type Severity Reaction Status Date / Time Penicillins Allergy Intermediate ITCHING Verified 06/21/23 13:52 codeine Allergy Unknown Unknown Verified 06/21/23 13:52 prednisone AdvReac Intermediate Other Verified 06/21/23 14:38 Review of Systems Review of Systems: Pertinent positives per HPI. Patient denies any fever, chills, rash, headache, visual changes, dizziness, cough, runny nose, sore throat, shortness of breath, chest pain, palpitations, nausea, vomiting, diarrhea, constipation, abdominal pain, or any urinary issues. PMFSH Past Medical History Medical History GERD (gastroesophageal reflux disease) Hx of gallstones Surgical History Surgical History History of mastopexy Hx of breast augmentation Hx of carpal tunnel repair Hx of ovarian cystectomy Family History Family History Sibling Family history of lung cancer Family history of primary malignant neoplasm of liver Social History Social History Smoking status: Unknown if ever smoked Alcohol intake: never Comments At the time of my signature, I reviewed and agree with the nursing past medical, surgical, social, and family history. There is no relevant family history pertinent to the patient complaint. Exam Narrative: General: Well-developed, well nourished, in no apparent distress Head: Normocephalic, atraumatic Eyes: Pupils equally round and reactive to light bilaterally, EOM intact, sclera and conjunctive clear, no discharge, lids normal Ears: Cerumen in the left ear canal, ear irrigation was performed of the left ear canal, TMs intact and congested with fluid noted behind the TMs, ear canals clear, no drainage, grossly hearing normal. Nose: Nares patent, no discharge, no inflammation, no sinus tenderness. Mouth: Oropharynx without lesions or masses, good dentition, MMM. Neck: Supple, trachea midline, no enlargement of anterior or posterior cervical nodes, no thyroid masses or goiter palpable. Cardio: Regular rate and rhythm, s1 and s2 normal, no murmur appreciated. Resp: Clear to auscultation bilaterally anteriorly and posteriorly, no rhonchi, rales, wheezing or rubs Course Course Emergency Course: Portions of this record may have been created with voice recognition software. Level of Care: Express Care Visit Vital Signs Vital signs: Vital Signs Temperature 36.6 C 07/06/23 13:17 Pulse Rate
== END 2023-07-06 14:26 | disposition home or self-care (01) ==
PROVIDERS: Emergency Provider Nurse Practitioner Family; PCP Internal Medicine
DX: H93.13 Tinnitus, bilateral (principal); H61.22 Impacted cerumen, left ear; H65.03 Acute serous otitis media, bilateral; K21.9 Gastro-esophageal reflux disease without esophagitis
CPT/HCPCS: 69210; 99212; G0463

== ENCOUNTER 2023-08-29 15:11 | Outpatient (CLI) | payer OTHER, SELFPAY ==
--- NOTE | ~2023-08-29 | MM_ITS ---
EXAMINATION: MM scrn jaylon implant BI w enrique HISTORY: Screening mammogram TECHNIQUE: Craniocaudal and mediolateral oblique 3-D tomosynthesis images with implant displacement a nd synthetic 2-D images were generated. Craniocaudal and mediolateral oblique views of the breasts wi thout implant displacement were obtained using full field digital mammography. CAD analysis was submi tted and interpreted. COMPARISON: Comparison to multiple prior studies sequentially, with oldest reviewed study dated 06/16. BREAST PARENCHYMAL COMPOSITION: Dense: The breasts are heterogeneously dense, which may obscure small masses FINDINGS: There is no evidence of suspicious mass, calcification, or architectural distortion to sugg est malignancy in either breast. There has been no suspicious interval change. IMPRESSION: 1. No mammographic evidence of malignancy. 2. Recommend routine screening mammography in one year. BI-RADS Category 1: Negative Reviewed, dictated and finalized at location B.
== END 2023-08-29 15:12 | disposition home or self-care (01) ==
LOC: ANHIMG 15:12
PROVIDERS: PCP Internal Medicine; Visit Provider Nurse Practitioner
DX: Z12.31 Encounter for screening mammogram for malignant neoplasm of breast (principal)
CPT/HCPCS: 77063; 77067

== ENCOUNTER 2023-11-15 12:30 | Outpatient (RCR) | payer OTHER, SELFPAY ==
--- NOTE | 2023-09-20 16:34 | OPREHPOC ---
Outpatient Therapy Plan of Care This is a Multidisciplinary Plan of Care that may contain components documented by all disciplines (PT, OT, and ST.) PT Problem 1 PT Problem #1 Knowledge Deficit PT Goal 1 Goal [place] with HEP Target Visit 3 PT Problem 2 PT Problem #2 Impaired Range of Motion PT Goal 1 Goal Achieve 15 degrees ez dorsiflexion ROM Target Visit 6 PT Problem 3 PT Problem #3 Impaired Strength PT Goal 1 Goal Improve ez dorsiflexion strength to 5/5 to improve anterior ankle stability Target Visit 6 PT Goal 2 Goal Improve ez inversion strength to 5/5 to improve arch support and foot progression Target Visit 6 PT Problem 4 PT Problem #4 Impaired Strength PT Goal 1 Goal Improve ez hip abduction strength to 4+/5 to improve lateral stability of pelvis and lower quadrant Target Visit 6 PT Problem 5 PT Problem #5 Impaired Sensation PT Goal 1 Goal Demonstrated no point tenderness to ez anterior tibialis Target Visit 6
--- NOTE | 2023-09-20 16:34 | PTOPEVAL1 ---
Assessment and note entered by Davon Alamo, PT Evaluation Information Assessment Status Evaluation Diagnosis Arias splints ICD-10 Condition Codes (PT) M25.561,Pain in left knee M25.562 Onset February 2023 Subjective Information Reports that she has been having anterior arias pain for the past year or so. She has been on statins and she recently decreased that which has helped. Bothers her with a lot of walking or standing. She was having a lot aching at night. Reported Pain Level Pain Score 2: Self Report Assessment PT Clinical Summary Patient presents with signs and symptoms consistent with arias splints. She is demonstrating reduction in dorsiflexion from passive insufficiency of gastrocs and weakness of dorsiflexors. Some myotomal weakness noted in L5 on R side with history of sciatica as well. Weakness in ez hip. Will benefit from skilled therapy to address these deficits. Plan of Care Interventions Electrical Stimulation,Gait Training,Manual Therapy,Neuro Re-education,Therapeutic Activities, Therapeutic Exercise PT Services Indicated Yes Treatment Frequency and 2x/week for 6 visits Duration These treatments will address the objective and functional deficits as defined above. The patient will be advanced safely and appropriately in order for the patient to progress towards his/her prior level of function. Additional exercises will be introduced and as well as a comprehensive home exercise program upon discharge, if needed, ?to ensure carryover of functional gains achieved in the clinic. This treatment plan has been reviewed and agreement upon by the patient.
--- NOTE | 2023-10-18 14:14 | OPREHPOC ---
Outpatient Therapy Plan of Care This is a Multidisciplinary Plan of Care that may contain components documented by all disciplines (PT, OT, and ST.) PT Problem 1 PT Problem #1 Knowledge Deficit PT Goal 1 Goal / Goal Update [place] with HEP Target Visit 3 Progress Met PT Problem 2 PT Problem #2 Impaired Range of Motion PT Goal 1 Goal / Goal Update Achieve 15 degrees ez dorsiflexion ROM Target Visit 6 Progress Met PT Goal 2 Goal / Goal Update Achieve 40 degrees ez hip abduction to reduce hip capsule restriction Target Visit 14 PT Problem 3 PT Problem #3 Impaired Strength PT Goal 1 Goal / Goal Update Improve ez dorsiflexion strength to 5/5 to improve anterior ankle stability Target Visit 6 Progress Met PT Goal 2 Goal / Goal Update Improve ez inversion strength to 5/5 to improve arch support and foot progression Target Visit 6 Progress Met PT Problem 4 PT Problem #4 Impaired Strength PT Goal 1 Goal / Goal Update Improve ez hip abduction strength to 4+/5 to improve lateral stability of pelvis and lower quadrant Target Visit 14 PT Goal 2 Goal / Goal Update Improve ez hip flexion strength to 5/5 to help with foot clearance and pelvic stability Target Visit 14 PT Problem 5 PT Problem #5 Impaired Sensation PT Goal 1 Goal / Goal Update Demonstrated no point tenderness to ez anterior tibialis (Mild tenderness to Right anterior tib) Target Visit 6 Progress Partially Met
--- NOTE | 2023-10-18 14:15 | PTOPPROG ---
Assessment and note entered by Davon Alamo, PT Evaluation Information Assessment Status Progress Diagnosis Serra splints ICD-10 Condition Codes (PT) M25.561,Pain in left knee M25.562 Onset February 2023 Subjective Information Reports that she is still getting some ache in her feet, but she is able to sleep. Most of her issue is in her lateral hip at this point. Would like to continue therapy per MD recommendation to address hips and low back. She is having some sciatica type symptoms. Assessment PT Clinical Summary Patient has seen excellent progress in ankle mobility and strength at this time. We are seeing significant impact of poor hip mobility and strength with ankle and hip pain. 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 Plan of Care Interventions Electrical Stimulation,Gait Training,Manual Therapy,Neuro Re-education,Therapeutic Activities, Therapeutic Exercise PT Services Indicated Yes Treatment Frequency and 1-2x/week for 8 visits Duration These treatments will address the objective and functional deficits as defined above. The patient will be advanced safely and appropriately in order for the patient to progress towards his/her prior level of function. Additional exercises will be introduced and as well as a comprehensive home exercise program upon discharge, if needed, ?to ensure carryover of functional gains achieved in the clinic. This treatment plan has been reviewed and agreement upon by the patient.
--- NOTE | 2023-11-12 16:05 | PCPTNOTE ---
Patient unable to come to therapy due to conflicting appointment.
--- NOTE | 2023-11-15 14:20 | OPREHPOC ---
Outpatient Therapy Plan of Care This is a Multidisciplinary Plan of Care that may contain components documented by all disciplines (PT, OT, and ST.) PT Problem 1 PT Problem #1 Knowledge Deficit PT Goal 1 Goal / Goal Update [place] with HEP Target Visit 3 Progress Met PT Problem 2 PT Problem #2 Impaired Range of Motion PT Goal 1 Goal / Goal Update Achieve 15 degrees ez dorsiflexion ROM Target Visit 6 Progress Met PT Goal 2 Goal / Goal Update Achieve 40 degrees ez hip abduction to reduce hip capsule restriction Target Visit 14 Progress Met PT Problem 3 PT Problem #3 Impaired Strength PT Goal 1 Goal / Goal Update Improve ez dorsiflexion strength to 5/5 to improve anterior ankle stability Target Visit 6 Progress Met PT Goal 2 Goal / Goal Update Improve ez inversion strength to 5/5 to improve arch support and foot progression Target Visit 6 Progress Met PT Problem 4 PT Problem #4 Impaired Strength PT Goal 1 Goal / Goal Update Improve ez hip abduction strength to 4+/5 to improve lateral stability of pelvis and lower quadrant Target Visit 14 Progress Partially Met PT Goal 2 Goal / Goal Update Improve ez hip flexion strength to 5/5 to help with foot clearance and pelvic stability Target Visit 14 Progress Partially Met PT Problem 5 PT Problem #5 Impaired Sensation PT Goal 1 Goal / Goal Update Demonstrated no point tenderness to ez anterior tibialis (Mild tenderness to Right anterior tib) Target Visit 6 Progress Partially Met
--- NOTE | 2023-11-15 14:23 | PTOPDC ---
Assessment and note entered by Davon Alamo, PT Evaluation Information Assessment Status Discharge Diagnosis Serra splints ICD-10 Condition Codes (PT) M25.561,Pain in left knee M25.562 Onset February 2023 Subjective Information Reports that she is still getting some ache in her feet, but she is able to sleep. Most of her issue is in her lateral hip at this point. Would like to continue therapy per MD recommendation to address hips and low back. She is having some sciatica type symptoms. Reported Pain Level Pain Score 1,0: Self Report Assessment PT Clinical Summary Patient met majority of goals for therapy at this time. She still shows some minor strength deficits to anterior hip and lateral hip at this time but shows room for continued progress. Patient is independent with HEP and suitable for discharge. Plan of Care PT Services Indicated D/C to HEP
== END 2023-11-15 15:33 | disposition home or self-care (01) ==
LOC: ANHGOSHPT 12:30
PROVIDERS: PCP Internal Medicine; Visit Provider Physician Assistant Surgical
DX: S86.891A Other injury of other muscle(s) and tendon(s) at lower leg level, right leg, initial encounter (principal); S86.892A Other injury of other muscle(s) and tendon(s) at lower leg level, left leg, initial encounter
CPT/HCPCS: 97110; 97140; 97161; 97530

== ENCOUNTER 2023-11-26 13:07 | Outpatient (CLI) | payer OTHER, SELFPAY ==
[2023-11-26 18:55] LABS: Complement C3 126 mg/dL (88-165)
== END 2023-11-26 13:08 | disposition home or self-care (01) ==
LOC: ANHGOSHLAB 13:09
PROVIDERS: PCP Internal Medicine
DX: R76.8 Other specified abnormal immunological findings in serum (principal)
CPT/HCPCS: 36415; 86160; 86225

== ENCOUNTER 2024-01-27 08:58 | Outpatient (CLI) | payer OTHER, SELFPAY ==
[2024-01-27 20:02] LABS: Alanine Aminotransferase 88 U/L (6-35); Alkaline Phosphatase 89 U/L (38-126); Anion Gap 3 mmol/L (4-12); Aspartate Amino Transferase 118 U/L (14-36); Bilirubin,Total 0.6 mg/dL (0.2-1.3); Blood Urea Nitrogen 13 mg/dL (7-17); Calcium 9.3 mg/dL (8.4-10.2); Carbon Dioxide 29 mmol/L (22-30); Chloride 107 mmol/L (98-107); Cholesterol 250 mg/dL (0-200); Estimated Glomerular Filt Rate > 60; Glucose 81 mg/dL (65-110); HDL Direct 54 mg/dL; Potassium 4.5 mmol/L (3.4-5.0); Sodium 139 mmol/L (137-145); Triglycerides 138 mg/dL (<150)
[2024-01-27 20:13] LABS: LDL Cholesterol Direct 146 mg/dL
== END 2024-01-27 08:59 | disposition home or self-care (01) ==
LOC: ANHGOSHLAB 09:00
DX: E78.5 Hyperlipidemia, unspecified (principal)
CPT/HCPCS: 36415; 80053; 80061

== ENCOUNTER 2024-03-30 08:41 | Outpatient (CLI) | payer OTHER, SELFPAY ==
--- NOTE | ~2024-03-30 | US_ITS ---
Limited Abdominal Sonogram: Real-time sonographic imaging of the right upper quadrant was performed. Clinical History: Abnormal transaminase levels Findings: The liver appears normal with no evidence of bile duct dilatation. 1.2 cm hyperechoic hepa tic lesion peripherally is most likely hemangioma. Main portal vein demonstrates normal direction of flow. The gallbladder is absent, compatible prior cholecystectomy. The common bile duct measures 7 mm . The visualized pancreas, aorta, and IVC are unremarkable. Impression: Status post cholecystectomy. 1.2 cm hyperechoic hepatic lesion is most likely hemangioma. Reviewed, dictated and finalized at location . RINTEND[facility]ELINES Impression: Status post cholecystectomy. 1.2 cm hyperechoic hepatic lesion is most likely hemangioma.
--- OUTSIDE RECORDS SUMMARY | 2024-03-30 08:57 | XMS_ITS | CONTINUITY OF CARE DOCUMENT ---
Author Name juan gabrielamoisés Address Unknown Organization [facility] Address [address] [place] [address] [address] [place] [address] Phone [phone] Care Team Providers Care Comic Book Writer Name Role Phone Hieu SAMUELS, Kamryn Unavailable NIKHIL CEE MD Unavailable [phone] NIKHIL CEE MD Unavailable [phone] INSURANCE PROVIDERS Payer name Policy type / Coverage type [place] red green party ID [facility] [id number]
--- OUTSIDE RECORDS SUMMARY | 2024-03-30 08:57 | XMS_ITS | Clinical Summary ---
Author Organization [facility] Address [facility] [place] [address] Care Team Providers Care Broadcast Field Supervisor Name Role Phone Daquan Byrnes Primary Care Provider [phone] Allergies No known active allergies Medications amitriptyline (ELAVIL) 25 mg tablet Take 1 tablet (25 mg total) by mouth daily 03/14/2023 Active estradioL (ESTRACE) 1 mg tablet Take 1 tablet (1 mg total) by mouth daily 02/20/2023 Active medroxyPROGESTE Chance (PROVERA) 2.5 mg tablet Take 1 tablet (2.5 mg total) by mouth daily 02/20/[address] (PROTONIX) 40 mg EC tablet TAKE 1 TABLET BY MOUTH EVERY DAY IN THE MORNING NEEDED 02/07/2023 Active rosuvastatin (CRESTOR) 10 mg tablet Take 1 tablet (10 mg total) by mouth daily 02/07/2023 Active Active Problems No known active problems Social History Tobacco Use Types Packs/Day Years Used Date Smoking Tobacco: Unknown Tobacco Cessation:Counseling Given: Not Answered Personal Safety Answer Date Recorded Getting School Help Needed Not on file 02/20 Comments Unknown Sex and Gender Information Value Date Recorded Sex Assigned at Not on file Legal Sex Female 1:30 PM SENIOR ORACLE ADF DEVELOPER Gender Identity Not on file Sexual Orientation Not on file Obstetrics History Last Filed Vital Signs Vital Sign Reading Time Taken Comments Blood Pressure 121/76 04/18/2023 10:35 AM SENIOR ORACLE ADF DEVELOPER Pulse 76 04/18/2023 10:35 AM SENIOR ORACLE ADF DEVELOPER Temperature - - Respiratory Rate - - Oxygen Saturation - - Inhaled Oxygen Concentration - - Weight 57.6 kg (127 lb) 04/18/2023 10:35 AM SENIOR ORACLE ADF DEVELOPER Height 157.5 cm (5' 2 ) 04/18/2023 10:35 AM SENIOR ORACLE ADF DEVELOPER Body Mass Index 23.23 04/18/2023 10:35 AM SENIOR ORACLE ADF DEVELOPER Plan of Treatment Health Maintenance Due Date Last Done Comments Breast Cancer Screening-Mammogram 1960 Cervical Cancer Screening 1960 Colon Cancer Screening-Colonoscopy 1960 Depression Screening 1960 Hepatitis C Screening 1960 DTaP/Tdap/Td Vaccine (1 - Tdap) 07/08/1971 Hepatitis B Screening 1978 Regular Well Visit/Exam 18-64 1978 Zoster Vaccine (1 of 2) 2010 Influenza Vaccine (#1) 2023 7, 12/08/2015, 12/24/2014, Additional history exists Pneumococcal vaccine <65 Aged Out No longer eligible based on patient's age to complete this topic [place] [address] [place] [address] Care Teams Broadcast Field Supervisor Relationship Specialty Start Date End Date Daquan Byrnes PA [address] [place] [id number] PCP - General Physician Coke Oven Patcher 02/20/23
--- OUTSIDE RECORDS SUMMARY | 2024-03-30 08:57 | XMS_ITS | Continuity of Care Document ---
Author Organization [facility] Address [address] [place] [address] [place] [address] Phone Care Team Providers Care Patrol Supervisor Name Role Phone Brendan Wills DO Unavailable Unavailable Advance Directives Directive Yes / No Effective Date File Name No Information Encounters Encounter Description Practice Location Reason(s) For Visit Diagnoses Date Provider Providers Copied on Encounter [facility], [address], [place], [place], [id number], [place] tel:[phone] No Information Johann Chu. [address], [place], [address], [place]. tel:[phone] Family History Family Member Type Diagnosis Age At Onset No Information Payers Payer name Insurance type Covered alliance party ID Authoriza tion(s) No Information Social History [...]
--- OUTSIDE RECORDS SUMMARY | 2024-03-30 08:57 | XMS_ITS | Referral Summary ---
Author Organization [facility] Address [address] [place] [address] Care Team Providers Care Skin Lap Bonder Name Role Phone Daquan Byrnes Primary Care Provider [phone] Allergies No known active allergies Medications amitriptyline [...] on file Legal Sex Female 1:30 PM EVAPORATOR OPERATOR Gender Identity Not on file Sexual Orientation Not on file Last Filed Vital Signs Vital Sign Reading Time Taken Comments Blood Pressure 121/76 04/18/2023 10:35 AM EVAPORATOR OPERATOR Pulse 76 04/18/2023 10:35 AM EVAPORATOR OPERATOR Temperature - - Respiratory Rate - - Oxygen Saturation - - Inhaled Oxygen Concentration - - Weight 57.6 kg (127 lb) 04/18/2023 10:35 AM EVAPORATOR OPERATOR Height 157.5 cm (5' 2 ) 04/18/2023 10:35 AM EVAPORATOR OPERATOR Body Mass Index 23.23 04/18/2023 10:35 AM EVAPORATOR OPERATOR Plan of Treatment Not on file Insurance Care Teams Skin Lap Bonder Relationship Specialty Start Date End Date Daquan Byrnes PA [address] [place] [address] PCP - General Physician Pot Builder 02/20/23
--- OUTSIDE RECORDS SUMMARY | 2024-03-30 08:57 | XMS_ITS | Clinical Summary ---
Author Organization [facility] Address [address] [facility] [address] Care Team Providers Care Hvac Technician Name Role Phone Unavailable Primary Care Provider Unavailabl e Social History Tobacco Use Types Packs/Day Years Used Date Smoking Tobacco: Never Assessed Comments Unknown Sex and Gender Information Value Date Recorded Sex Assigned at Not on file Legal Sex Female 3:16 PM CDT Gender Identity Not on file Sexual Orientation Not on file Plan of Treatment Health Maintenance Due Date Last Done Comments DTAP/TDAP/TD VACCINES (1 - Tdap) 07/08/1979 CERVICAL CANCER SCREENING 1990 BREAST CANCER SCREENING 2000 COLORECTAL SCREENING 2005 Colorectal Cancer Screening 2005 FIT-DNA Q 3 years 2005 FIT/FOBT Q 1 year 2005 Flex Sig/CT Colonography Q 5 years 2005 ZOSTER VACCINE (1 of 2) 2010 INFLUENZA VACCINE (#1) 2023 RSV VACCINE (60+ or ) (1 - 1-dose 75+ series) 07/08/2035 PNEUMOCOCCAL VACCINE 0-64 YEARS Aged Out No longer eligible based on patient's age to complete this topic
== END 2024-03-30 08:42 | disposition home or self-care (01) ==
PROVIDERS: Visit Provider Nurse Practitioner Family
DX: K76.89 Other specified diseases of liver (principal); R74.01 Elevation of levels of liver transaminase levels; Z90.49 Acquired absence of other specified parts of digestive tract
CPT/HCPCS: 76705

== ENCOUNTER 2024-04-13 12:54 | Outpatient (CLI) | payer OTHER, SELFPAY ==
--- OUTSIDE RECORDS SUMMARY | 2024-04-13 14:38 | XMS_ITS | Clinical Summary ---
Author Organization [facility] Address [address] [facility] [place] [address] Care Team Providers Care Complaints Coordinator Name Role Phone Unavailable Primary Care Provider [...]
--- OUTSIDE RECORDS SUMMARY | 2024-04-13 14:38 | XMS_ITS | CONTINUITY OF CARE DOCUMENT ---
Author Name juan gabrielamoisés Address Unknown Organization [facility] Address [address] [place] [address] Phone [phone] Care Team Providers Care Lending Consultant Name Role Phone Hieu SAMUELS, Kamryn Unavailable [phone] NIKHIL CEE MD Unavailable [phone] NIKHIL CEE MD Unavailable INSURANCE PROVIDERS Payer name Policy type / Coverage type [place] red constitution party ID [facility] [address] [id number]
--- OUTSIDE RECORDS SUMMARY | 2024-04-13 14:38 | XMS_ITS | Referral Summary ---
Author Organization [facility] Address [address] [place] [address] Care Team Providers Care Woods Rider Name Role Phone Daquan Byrnes Primary Care Provider [phone] Allergies No known active allergies Medications amitriptyline [...] on file Legal Sex Female 1:30 PM SATURATOR OPERATOR Gender Identity Not on file Sexual Orientation Not on file Last Filed Vital Signs Vital Sign Reading Time Taken Comments Blood Pressure 121/76 04/18/2023 10:35 AM SATURATOR OPERATOR Pulse 76 04/18/2023 10:35 AM SATURATOR OPERATOR Temperature - - Respiratory Rate - - Oxygen Saturation - - Inhaled Oxygen Concentration - - Weight 57.6 kg (127 lb) 04/18/2023 10:35 AM SATURATOR OPERATOR Height 157.5 cm (5' 2 ) 04/18/2023 10:35 AM SATURATOR OPERATOR Body Mass Index 23.23 04/18/2023 10:35 AM SATURATOR OPERATOR Plan of Treatment Not on file Insurance Care Teams Woods Rider Relationship Specialty Start Date End Date Daquan Byrnes PA [address] [place] [address] PCP - General Physician Event Marketing Manager 02/20/23
--- OUTSIDE RECORDS SUMMARY | 2024-04-13 14:38 | XMS_ITS | Continuity of Care Document ---
Author Organization [facility] Address [address] [place] [address] [place] [address] Phone Care Team Providers Care Field Representatives Director Name Role Phone Brendan Wills DO Unavailable Unavailable Advance Directives Directive Yes / No Effective Date File Name No Information Encounters Encounter Description Practice Location Reason(s) For Visit Diagnoses Date Provider Providers Copied on Encounter [facility], [address] [place] [address] [address], [place], [place], [address], [place] tel:[phone] [facility] No Information Johann Chu. [address] [facility], [place], [address], [place]. tel:[phone] Family History Family Member Type Diagnosis Age At Onset No Information Payers Payer name Insurance type Covered constitution party ID Authoriza tion(s) No Information Social [...]
--- OUTSIDE RECORDS SUMMARY | 2024-04-13 14:38 | XMS_ITS | Clinical Summary ---
Author Organization [facility] Address [facility] [place] [address] Care Team Providers Care Terry Cloth Cutter Hand Name Role Phone Daquan Byrnes Primary Care Provider Allergies No known active allergies Medications amitriptyline [...] on file Legal Sex Female 1:30 PM MURAL PAINTER Gender Identity Not on file Sexual Orientation Not on file Obstetrics History Last Filed Vital Signs Vital Sign Reading Time Taken Comments Blood Pressure 121/76 04/18/2023 10:35 AM MURAL PAINTER Pulse 76 04/18/2023 10:35 AM MURAL PAINTER Temperature - - Respiratory Rate - - Oxygen Saturation - - Inhaled Oxygen Concentration - - Weight 57.6 kg (127 lb) 04/18/2023 10:35 AM MURAL PAINTER Height 157.5 cm (5' 2 ) 04/18/2023 10:35 AM MURAL PAINTER Body Mass Index 23.23 04/18/2023 10:35 AM MURAL PAINTER Plan of Treatment Health Maintenance Due Date [...] patient's age to complete this topic [place] [address] [place] [address] Care Teams Terry Cloth Cutter Hand Relationship Specialty Start Date End Date Daquan Byrnes PA [address] [place] [id number] PCP - General Physician Lock Corner Machine Operator 02/20/23
[2024-04-13 20:00] LABS: Alanine Aminotransferase 35 U/L (6-35); Albumin Level 3.7 g/dL (3.5-5.1); Alkaline Phosphatase 74 U/L (38-126); Anion Gap 6 mmol/L (4-12); Aspartate Amino Transferase 39 U/L (14-36); Bilirubin,Total 0.4 mg/dL (0.2-1.3); Blood Urea Nitrogen 14 mg/dL (7-17); Calcium 9.3 mg/dL (8.4-10.2); Carbon Dioxide 30 mmol/L (22-30); Chloride 101 mmol/L (98-107); Estimated Glomerular Filt Rate > 60; Glucose 71 mg/dL (65-110); Potassium 4.1 mmol/L (3.4-5.0); Sodium 137 mmol/L (137-145)
== END 2024-04-13 12:55 | disposition home or self-care (01) ==
LOC: ANHGOSHLAB 12:58
PROVIDERS: Visit Provider Nurse Practitioner
DX: R74.01 Elevation of levels of liver transaminase levels (principal)
CPT/HCPCS: 36415; 80053

== ENCOUNTER 2024-04-16 10:15 | Outpatient (RCR) | payer OTHER, SELFPAY ==
--- NOTE | 2024-02-18 14:27 | OTOPEVAL1 ---
Assessment and note entered by Billy Garcia, LIANG/Susie, CHT Evaluation Information Assessment Status Evaluation Diagnosis Pain in left hand ICD-10 Condition Codes (OT) Pain in left hand M79.642 Subjective Information Patient presents with signs and symptoms of a trigger thumb in her left thumb. She reports she has had one on this thumb before, received an injection, and this helped. She didn't want to get an injection again because it was painful and made her thumb numb for 24 hours. She is right handed. A homemaker. She reports difficulties with activities that require gripping or pinching, such as grabbing and opening jars, pill bottles, etc. She feels the thumb catch when she does zippers and buttons. Reported Pain Level Pain Score 4: Self Report Assessment OT Clinical Summary Pt referred to OT with signs and symptoms of a left trigger thumb. Today a custom figure-8 thumb IP immobilizer was fabricated to rest the FPL tendon. She was issued active/passive ROM HEP and educated on the use of ice. Continued follow up indicated for HEP progression and use of modalities to reduce tendon inflammation and pain to facilitate return of hand use for gripping and pinching tasks. Plan of Care Interventions Therapeutic Exercise,Manual Therapy,Therapeutic Activities,Hot Pack/Cold Pack,Check Out for Orthotic/Prosthetic,Ultrasound,Paraffin OT Services Indicated Yes Treatment Frequency and 1x/week for 5 visits Duration These treatments will address the objective and functional deficits as defined above. The patient will be advanced safely and appropriately in order for the patient to progress towards his/her prior level of function. Additional exercises will be introduced and as well as a comprehensive home exercise program upon discharge, if needed, ?to ensure carryover of functional gains achieved in the clinic. This treatment plan has been reviewed and agreement upon by the patient.
--- NOTE | 2024-02-18 14:28 | OPREHPOC ---
Outpatient Therapy Plan of Care This is a Multidisciplinary Plan of Care that may contain components documented by all disciplines (PT, OT, and ST.) OT Problem 1 OT Problem #1 Knowledge Deficit OT Goal 1 Goal / Goal Update Pt to be independent with instructed materials Target Visit 5 OT Problem 2 OT Problem #2 Pain OT Goal 1 Goal / Goal Update Patient to report 0/10 pain at rest Target Visit 5 OT Goal 2 Goal / Goal Update Pt to report pain less than 4/10 with ADLs Target Visit 5 OT Problem 3 OT Problem #3 Impaired Flexibility OT Goal 1 Goal / Goal Update Patient to be able to complete serial opposition with slide to base of digit V with the left thumb without triggering Target Visit 5 OT Problem 4 OT Problem #4 Impaired Strength OT Goal 1 Goal / Goal Update Patient to be able to progress to light contact center professional/pinch strengthening with salas putty x5 minutes without triggering Target Visit 5
--- NOTE | 2024-03-19 14:46 | OTOPPROG ---
Assessment and note entered by LIANG Gale/Susie, KENISHAT OT Progress Update 03/19/24 Assessment Status Progress Diagnosis Pain in left hand Subjective Information Patient has been participating in OT treatments for symptoms of a left trigger thumb. She has been wearing an IP immobilizer to rest the FPL tendon. She reports she is able to move her thumb through more ROM before catching occurs. She reports less pain. She continues to report functional limitations with pinching due to consistent triggering with IP flexion. Assessment OT Clinical Summary Pt referred to OT with signs and symptoms of a left trigger thumb. She is making slow, steady progress with reduced pain and improved ROM. She is now able to actively bend the thumb IP about 45 degrees before the tendon catches, which improved from catching with any IP motion at all. She is compliant with splinting and HEP. HEP has been slowly progressed as she has demonstrated progress . Continued skilled OT indicated for HEP progression, therapeutic exercise, manual therapy, and use of modalities to reduce tendon inflammation and pain to facilitate return of hand use for gripping and pinching tasks. Plan of Care Interventions Therapeutic Exercise,Manual Therapy,Therapeutic Activities,Hot Pack/Cold Pack,Check Out for Orthotic/Prosthetic,Ultrasound,Paraffin OT Services Indicated Yes Treatment Frequency and 1x/week for 4 visits Duration These treatments will address the objective and functional deficits as defined above. The patient will be advanced safely and appropriately in order for the patient to progress towards his/her prior level of function. Additional exercises will be introduced and as well as a comprehensive home exercise program upon discharge, if needed, ?to ensure carryover of functional gains achieved in the clinic. This treatment plan has been reviewed and agreement upon by the patient.
--- NOTE | 2024-03-19 14:46 | OPREHPOC ---
Outpatient Therapy Plan of Care This is a Multidisciplinary Plan of Care that may contain components documented by all disciplines (PT, OT, and ST.) OT Problem 1 OT Problem #1 Knowledge Deficit OT Goal 1 Goal / Goal Update Pt to be independent with instructed materials ---OT POC UPDATE 03/19/24--- Met Target Visit 9 OT Problem 2 OT Problem #2 Pain OT Goal 1 Goal / Goal Update Patient to report 0/10 pain at rest ---OT POC UPDATE 03/19/24--- Met, Upgrade goal: 0/10 pain with thumb ROM through full ROM without catching Target Visit 9 OT Goal 2 Goal / Goal Update Pt to report pain less than 4/10 with ADLs ---OT POC UPDATE 03/19/24--- Inconsistently met Target Visit 9 OT Problem 3 OT Problem #3 Impaired Flexibility OT Goal 1 Goal / Goal Update Patient to be able to complete serial opposition with slide to base of digit V with the left thumb without triggering ---OT POC UPDATE 03/19/24--- Inconsistently met, continue goal Target Visit 9 OT Problem 4 OT Problem #4 Impaired Strength OT Goal 1 Goal / Goal Update Patient to be able to progress to light community midwife/pinch strengthening with salas putty x5 minutes without triggering ---OT POC UPDATE 03/19/24--- Have not progressed to putty due to continued symptoms of triggering with active ROM, tolerating isometrics well, continue to progress to putty as able Target Visit 9
--- NOTE | 2024-04-16 11:05 | OTOPDC ---
Assessment and note entered by Billy Garcia, LIANG/Susie, CHT OT Discharge Summary 04/16/24 Diagnosis Pain in left hand ICD-10 Condition Codes (OT) Pain in left hand M79.642 Subjective Information Patient has been participating OT for symptoms of a left trigger thumb. She reports progress with her flexibility, being able to move through more ROM. She is now able to pinch and do buttons and zippers without catching. She continues to have catching with fully flexing the thumb IP joint, however it is no longer painful when it catches. She is no longer having pain. She is wearing an IP immobilizer intermittently. She is using putty for strengthening and does not experience catching with this. Reported Pain Level Pain Score 0: Self Report Assessment OT Clinical Summary Pt referred to OT with signs and symptoms of a left trigger thumb. She is making slow, steady progress with reduced pain, improved ROM, and improved functional use. She is now able to actively bend the thumb IP 75 degrees with very slight catching, no longer getting stuck to the point where her right hand has to extend it again. She is compliant with splinting and HEP. She is completing operations plant attendant and pinch strengthening without catching. At this time the patient is independent with all materials and is ready for discharge. Plan of Care OT Services Indicated No
== END 2024-04-16 11:17 | disposition home or self-care (01) ==
LOC: ANHGOSHOT 10:15
PROVIDERS: Visit Provider Physician Assistant Surgical
DX: M79.642 Pain in left hand (principal)
CPT/HCPCS: 97018; 97035; 97110; 97140; 97165; L3933

== ENCOUNTER 2024-05-08 15:28 | Outpatient (CLI) | payer OTHER, SELFPAY ==
--- NOTE | ~2024-05-08 | US_ITS ---
EXAMINATION: US pelvic complete INDICATION: Postmenopausal bleeding Comparison:No prior studies for comparison. TECHNIQUE: Multiple transabdominal sonographic images of the pelvis performed. Patient refused transv aginal examination. FINDINGS: The uterus measures 8.9 x 3.7 x 5 cm. The endometrial complex measures 2. The right ovary measures 3.3 x 1.6 x 1.6 cm and the left ovary measures 1.6 x 1.9 x 1.5 cm. There ar e small follicles in each ovary. Normal doppler signal in both ovaries. There is no free fluid in the pelvis. There are no abnormal masses seen on either side. IMPRESSION: 1. Unremarkable pelvic ultrasound. Reviewed, dictated and finalized at location B.
--- OUTSIDE RECORDS SUMMARY | 2024-05-08 15:31 | XMS_ITS | CONTINUITY OF CARE DOCUMENT ---
Author Name juan gabrielamoisés Address Unknown Organization [facility] Address [address] [place] [address] Phone [phone] Care Team Providers Care Sales Ledger Clerk Name Role Phone Hieu SAMUELS, Kamryn Unavailable [phone] NIKHIL CEE MD Unavailable [phone] NIKHIL CEE MD Unavailable [phone] INSURANCE PROVIDERS Payer name Policy type / Coverage type [place] red green party ID [facility] [id number]
--- OUTSIDE RECORDS SUMMARY | 2024-05-08 15:31 | XMS_ITS | Clinical Summary ---
Author Organization [facility] Address [address] [place] [address] Care Team Providers Care English As A Second Language Instructor Name Role Phone Unavailable Primary Care Provider [...] Comments DTAP/TDAP/TD VACCINES (1 - Tdap) 07/08/1979 PAP SMEAR 1990 BREAST CANCER SCREENING 2000 COLORECTAL SCREENING 2005 Colorectal Cancer Screening 2005 FIT-DNA Q 3 years 2005 FIT/FOBT Q 1 year 2005 Flex Sig/CT Colonography Q 5 years 2005 ZOSTER VACCINE (1 of 2) 2010 INFLUENZA VACCINE (#1) 2023 RSV VACCINE (60+ or ) (1 - 1-dose 75+ series) 07/08/2035
--- OUTSIDE RECORDS SUMMARY | 2024-05-08 15:31 | XMS_ITS | Referral Summary ---
Author Organization [facility] Address [address] [place] [address] Care Team Providers Care Group Counselor Name Role Phone Daquan Byrnes Primary Care Provider [phone] Allergies No known active allergies Medications amitriptyline [...] on file Legal Sex Female 1:30 PM ENCEPHALOGRAPHER Gender Identity Not on file Sexual Orientation Not on file Last Filed Vital Signs Vital Sign Reading Time Taken Comments Blood Pressure 121/76 04/18/2023 10:35 AM ENCEPHALOGRAPHER Pulse 76 04/18/2023 10:35 AM ENCEPHALOGRAPHER Temperature - - Respiratory Rate - - Oxygen Saturation - - Inhaled Oxygen Concentration - - Weight 57.6 kg (127 lb) 04/18/2023 10:35 AM ENCEPHALOGRAPHER Height 157.5 cm (5' 2 ) 04/18/2023 10:35 AM ENCEPHALOGRAPHER Body Mass Index 23.23 04/18/2023 10:35 AM ENCEPHALOGRAPHER Plan of Treatment Not on file Insurance [facility] Care Teams Group Counselor Relationship Specialty Start Date End Date Daquan Byrnes PA [address] [place] [address] PCP - General Physician Sales Force Administrator 02/20/23
--- OUTSIDE RECORDS SUMMARY | 2024-05-08 15:31 | XMS_ITS | Clinical Summary ---
Author Organization [facility] Address [facility] [place] [address] Care Team Providers Care Pupil Personnel Worker Name Role Phone Daquan Byrnes Primary Care Provider [phone] Allergies No known active allergies Medications amitriptyline [...] on file Legal Sex Female 1:30 PM FIXED INCOME DIRECTOR Gender Identity Not on file Sexual Orientation Not on file Obstetrics History Last Filed Vital Signs Vital Sign Reading Time Taken Comments Blood Pressure 121/76 04/18/2023 10:35 AM FIXED INCOME DIRECTOR Pulse 76 04/18/2023 10:35 AM FIXED INCOME DIRECTOR Temperature - - Respiratory Rate - - Oxygen Saturation - - Inhaled Oxygen Concentration - - Weight 57.6 kg (127 lb) 04/18/2023 10:35 AM FIXED INCOME DIRECTOR Height 157.5 cm (5' 2 ) 04/18/2023 10:35 AM FIXED INCOME DIRECTOR Body Mass Index 23.23 04/18/2023 10:35 AM FIXED INCOME DIRECTOR Plan of Treatment Health Maintenance Due Date [...] patient's age to complete this topic [place] [address] [place] [address] Care Teams Pupil Personnel Worker Relationship Specialty Start Date End Date Daquan Byrnes PA [address] [place] [address] PCP - General Physician Acid Bath Mixer 02/20/23
--- OUTSIDE RECORDS SUMMARY | 2024-05-08 15:31 | XMS_ITS | Continuity of Care Document ---
Author Organization [facility] Address [address] [place] [address] [place] [address] Phone Care Team Providers Care School Bus Driver Name Role Phone Brendan Wills DO Unavailable Unavailable Advance Directives Directive Yes / No Effective Date File Name No Information Encounters Encounter Description Practice Location Reason(s) For Visit Diagnoses Date Provider Providers Copied on Encounter [facility], [address], [place], [place], [address], [place] tel:[phone] [facility] No Information Johann Chu. [address] [facility], [place], [address], [place]. tel:[phone] Family History Family Member Type Diagnosis Age At Onset No Information Payers Payer name Insurance type Covered green party ID Authoriza tion(s) No Information Social [...]
== END 2024-05-08 15:29 | disposition home or self-care (01) ==
PROVIDERS: PCP Internal Medicine; Visit Provider Obstetrics & Gynecology Gynecology
DX: N95.0 Postmenopausal bleeding (principal)
CPT/HCPCS: 76856

== ENCOUNTER 2024-06-22 00:44 | Day surgery (SDC) | payer OTHER, SELFPAY ==
--- NOTE | 2024-06-09 10:41 | SUR.PREOP ---
Addendum entered by Divine Tong RN 06/09/24 10:57: TAKE MONTEL[place]AST MORNING OF SURGERY Original Note: Report to the Outpatient Waiting Room, entrance under the green pavilion located off [facility], at time ___0615____ on date ___06/22/24____. Planned Procedure Time: ____814____.? Time changes happen often and if your time is changed the preop area will call you the afternoon before. - You and your visitor will be asked to self-screen and do not enter if you have any COVID symptoms. Please call surgeon if you need to reschedule. - A mask is optional within the hospital at this time. Patients may have clear liquids (water, carbonated beverages, clear teas, apple juice) until 3 hours prior to surgery with a maximum of 20 ounces. - NO CLEAR LIQUIDS AFTER 0515 - No food from midnight until time of surgery and no smoking, or chewing tobacco (or any form of nicotine). No chewing gum, candy or mints. - Infants may have breast milk until 4 hours before surgery, infant formula 6 hours prior to surgery. - Children will be allowed to drink immediately following surgery.? If applicable, please bring a bottle or sippy cup to assist with drinking. Juice, water, soda, and popsicles are readily available.? For infants on formula, please bring formula the day of surgery.? Pacifiers are allowed. Take only the following medications with a SIP of water on the morning of surgery: MEDROXYPROGESTERONE DO NOT STOP ANY OF YOUR OTHER PRESCRIPTION MEDICATIONS PRIOR TO SURGERY EXCEPT THE FOLLOWING Hold all vitamins and supplements for 3 days per anesthesiologist. Medications to discontinue per physician N/A Date to take last dose Please no make-up, nail citizen of [place], hairspray, perfume, deodorant, or body powder the day of surgery.? No jewelry (including any body piercings) or valuables the day of surgery, leave them at home.? Please take a shower or bath the night before, or the morning of, surgery with an antibacterial soap.? Wear comfortable, loose fitting clothing.? Children are encouraged to wear pajamas. - Jewelry must be removed prior to entering the operating room.? Rings and piercings that are not removed may be cut off. - The hospital will not accept responsibility for valuables.? - Please leave all valuables, including medications, at home the day of surgery. If you are going home after surgery, a licensed funeral limousine driver must drive you home.? - NO public transportation without another adult if you receive anesthesia. - We recommend that an adult stay with you for 24 hours following discharge. - We also recommend that you do not drive, make important decision, drink alcoholic beverages, or take any drugs that were not prescribed by your health care provider for at least 24 hours after your discharge time. For Pediatric surgeries, we recommend two adults accompany the child home. Follow any additional instructions given to you from your surgeon. Telephone instructions given to ____TINA CELL and asked if any additional questions and then verbalized understanding. Patient advised to call surgeon office or pre surgery nurse liaison [phone] if any additional questions.
[2024-06-09 10:51] VITALS: BMI 24.5
--- OUTSIDE RECORDS SUMMARY | 2024-06-22 00:48 | XMS_ITS | Clinical Summary ---
Author Organization [facility] Address [address] [place] [address] Care Team Providers Care Metal Weigher Name Role Phone Daquan Byrnes Primary Care Provider [phone] Allergies No known active allergies Medications amitriptyline [...] on file Legal Sex Female 1:30 PM MUCK MINER BLASTING Gender Identity Not on file Sexual Orientation Not on file Obstetrics History Last Filed Vital Signs Vital Sign Reading Time Taken Comments Blood Pressure 121/76 04/18/2023 10:35 AM MUCK MINER BLASTING Pulse 76 04/18/2023 10:35 AM MUCK MINER BLASTING Temperature - - Respiratory Rate - - Oxygen Saturation - - Inhaled Oxygen Concentration - - Weight 57.6 kg (127 lb) 04/18/2023 10:35 AM MUCK MINER BLASTING Height 157.5 cm (5' 2 ) 04/18/2023 10:35 AM MUCK MINER BLASTING Body Mass Index 23.23 04/18/2023 10:35 AM MUCK MINER BLASTING Plan of Treatment Health Maintenance Due Date [...] patient's age to complete this topic [place] [address] [place] [address] Care Teams Metal Weigher Relationship Specialty Start Date End Date Daquan Byrnes PA [address] [place] [address] PCP - General Physician Busser 02/20/23
--- OUTSIDE RECORDS SUMMARY | 2024-06-22 00:48 | XMS_ITS | Referral Summary ---
Author Organization [facility] Address [address] [place] [address] Care Team Providers Care Head Porter Name Role Phone Daquan Byrnes Primary Care Provider [phone] Allergies No known active allergies Medications amitriptyline [...] on file Legal Sex Female 1:30 PM PUBLIC RELATIONS ACCOUNT SUPERVISOR Gender Identity Not on file Sexual Orientation Not on file Last Filed Vital Signs Vital Sign Reading Time Taken Comments Blood Pressure 121/76 04/18/2023 10:35 AM PUBLIC RELATIONS ACCOUNT SUPERVISOR Pulse 76 04/18/2023 10:35 AM PUBLIC RELATIONS ACCOUNT SUPERVISOR Temperature - - Respiratory Rate - - Oxygen Saturation - - Inhaled Oxygen Concentration - - Weight 57.6 kg (127 lb) 04/18/2023 10:35 AM PUBLIC RELATIONS ACCOUNT SUPERVISOR Height 157.5 cm (5' 2 ) 04/18/2023 10:35 AM PUBLIC RELATIONS ACCOUNT SUPERVISOR Body Mass Index 23.23 04/18/2023 10:35 AM PUBLIC RELATIONS ACCOUNT SUPERVISOR Plan of Treatment Not on file [facility] Care Teams Head Porter Relationship Specialty Start Date End Date Daquan Byrnes PA [address] [place] [address] PCP - General Physician Hospital Technician 02/20/23
--- OUTSIDE RECORDS SUMMARY | 2024-06-22 00:48 | XMS_ITS | CONTINUITY OF CARE DOCUMENT ---
Author Name juan martinez Address Unknown Organization [facility] Address [address] [place] [address] [address] [place] [address] Phone [phone] Care Team Providers Care Polymerization Oven Operator Name Role Phone Hieu SAMUELS, Kamryn Unavailable NIKHIL CEE MD Unavailable NIKHIL CEE MD Unavailable [phone] INSURANCE PROVIDERS Payer name Policy type / Coverage type [place] red republican ID [facility] [id number]
--- OUTSIDE RECORDS SUMMARY | 2024-06-22 00:48 | XMS_ITS | Data Portability ---
Author Organization [facility], Main Office Address [address] [place] [address] Care Team Providers Care Finish Cleaner Name Role Phone CLIFTON KAY Primary Care Provider CLIFTON KAY Referring Provider Assessment Encounter Date Assessment Date Assessment LastModified by Organization Details LastModified Time 08/09/2023 08/09/2023 The patient has had recent multiple chronic aches and pains from the hips to the feet both sides these come and go she has also had some flexor tenosynovitis in her hand. This has resolved somewhat. No capo locking or catching is noted. We talked about modifying her exercise routine for now. She is going to lay off of heavy repetitive activity she does have some abnormal lab work possibly pointing to autoimmune disorders. She has been referred to a cold working inspector she is going to see that and dig further into what those labs mean and see if anything else needs to be done to see if she can come up with some sort of diagnosis. On my end there has not much else I can do from here. We reviewed everything in detail today she agreed to see the cold working inspector. I will see her back as needed she voiced understanding agrees with the above plan she will call for any further problems difficulties or questions. [email or web address] Not available 08/09/2023 16:15:29 Plan of Treatment Reminders Order Date Submit Date Provider Last Modified By Organization Details Last Modified Time Details Appointments Any 15 2024 01:30P M Clifton Kay MD Not available Not available Not available Lab None recorded. Referral None recorded. Procedures None recorded. Surgeries None recorded. Imaging None recorded. Medication Orders amitripty line 25 mg tablet 2023 024 [facility]/Pharmacy #[id number], [address], [place], [address], 09/16/2023 15:41:20 Patient TargetsNo targets recorded. Patient InstructionsNo instructions recorded. Reason for Referral None Reported. Results Created Date Observation Date Name Description Value Unit Range Abnormal Flag Note LastModifiedBy Organization Detail LastModifiedTime 08/30/19 24 08/29/2023 MAMMO , diagn ostic , tomos ynthe sis, bilat eral No observ ation record ed. Not Available 2023 15:35:00 03/30/19 25 03/30/2024 US, duple x, abdom en No observ ation record ed. Not Available 2024 12:47:10 05/13/19 25 05/11/2024 US, pelvi s, compl ete No observ ation record ed. Salma Winter [address] [address], [place], [address], Ph [phone] 05/13/2024 13:07:42 05/20/19 25 05/08/2024 US, pelvi s No observ ation record ed. Not Available 2024 08:50:32 Result Notes None recorded. Problems Name Problem SNOMED Code Status Onset Date Resolution Date Notes Provider Name and Address Organization Details Recorded Time Renewal of prescript ion Completed 202109/19/2021 Not Available [facility] 3 05:07:12 Irritable bowel syndrome 35424348 Active Not Available [facility] 3 05:07:12 Chronic neck pain 25979729156 07 Active Not Available [facility] 3 05:07:12 Acne 31019283 Active 2021 Not Available [facility] 3 05:07:12 Pain in left sacroilia c joint 23348691741 162493 Completed 202103/26/2022 Not Available [facility] 3 05:07:12 Acute sinusitis 32944999 Active 2021 Not Available [facility] 3 05:07:12 Backache 541464636 Completed Not Available [facility] 3 05:07:12 Blood chemistry outside reference range 428133010 Completed Not Available [facility] 3 05:07:13 Insomnia 123862606 Active 2021 Not Available [facility] 3 05:07:13 Abdominal pain 46740423 Active 2021 Not Available [facility] 3 05:07:13 Gastroeso phageal reflux disease 903275663 Active Not Available [facility] 3 05:07:13 Headache 16350011 Active Not Available [facility] 3 05:07:13 Gastroeso phageal reflux disease without esophagit is 211031753 Active 2021 Not Available [facility] 3 05:07:13 Long-term drug therapy Completed 202109/19/2021 Not Available [facility] 3 05:07:13 Adult health examinati on Active 2021 Not Available [facility] 3 05:07:13 Low back pain 179567717 Active 2021 Not Available [facility] 3 05:07:14 Numbness of hand 953328328 Completed 201609/25/2017 Not Available [facility] 3 05:07:14 Numbness of foot 717883227 Completed 201609/25/2017 Not Available [facility] 3 05:07:14 Pain of left hip joint 15222809102 9100 Completed 202103/26/2022 Elizabeth baer [facility] 3 11:08:11 Trochante erasto bursitis of left hip 08422308180 9103 Completed 202103/26/2022 Elizabeth baer [employer] Kymberly Deonna [employer] [facility] 3 11:08:01 Depressiv e disorder 50888980 Completed Not Available [facility] 3 05:07:14 Sinusitis 45834567 Completed Not Available [facility] 3 05:07:14 Pain of shoulder region 03413353 Completed Not Available [facility] 3 05:07:14 Gastritis 4702574 Active 2021 Not Available [facility] 3 05:07:14 Foot pain 60800310 Completed 201909/19/2021 Not Available [facility] 3 05:07:15 Sinus headache 6465844 Completed Not Available [facility] 3 05:07:15 Hyperlipi demia 42274185 Active 2016 Not Available [facility] 3 05:07:15 Pain of joint 39350733 Completed Not Available [facility] 3 05:07:15 Contusion of toe 92732215 Completed 201909/19/2021 Not Available [facility] 3 05:07:15 Acid reflux 006390377 Active 2021 Not Available [facility] 3 05:07:15 Rhinitis 79128895 Active Not Available [facility] 3 05:07:15 Closed fracture of distal phalanx of lesser toe 265030029 Completed 201909/19/2021 Not Available [facility] 3 05:07:15 Palpitati ons 78602367 Completed Not Available [facility] 3 05:07:15 Allergic rhinitis 11873958 Active 2022 HEATHER Sanchez, [place] [facility] 3 10:13:31 Trochante erasto bursitis of left hip 90886633711 9103 Active 2022 Elizabeth baer, [place] [facility] 3 11:08:01 Pain of left hip joint 55352838676 9100 Active 2022 Elizabeth baer, [place] [facility] 3 11:08:11 Bilateral sacroilia c joint pain 13196662218 064602 Active 2022 Elizabeth baer, [place] [facility] 3 11:08:30 Pain of right hip joint 18998599710 9102 Active 2022 Elizabeth baer, [place] [facility] 3 11:08:43 Pain of bilateral hip joints 80677541566 910290 Active 2022 Carie Feliz RMA null, [place] [facility] 3 15:31:17 Bilateral trochante erasto bursitis 43306720869 224971 Active 2022 Bianka Fajardo PLATE PREPAR[employer] null, [place] [facility] 3 16:01:59 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 2627299366 Active 2022 Fozia Blackmon ROLL FILLER null, [facility] 3 12:49:55 Vitamin D deficienc y 85093911 Active 2022 Alesha smith RMA null, [facility] 3 15:56:14 Liver function tests outside reference range 958417226 Active 2022 Clifton Kay MD [address], [place], [address] , [facility] 3 15:56:05 Pain of left hand 64931590334 9103 Active 2023 Bianka Huddlestondeonna [employer] PRE[employer]ER null, [place] [facility] 4 14:35:13 Pain in bilateral lower legs 78961568189 776152 Active 2023 Bianka Fajardo [employer] null, [place] [facility] 4 14:36:09 Flexor tenosynov itis of thumb 893441481 Active 2023 PINO Bailey [address], [address], [place], [address] , [facility] 4 15:41:21 Flexor tenosynov itis of thumb 297736369 Active 2023 PINO Bailey [address], [address], [place], [address] , [facility] 4 15:41:39 Impacted cerumen in left ear 13840680359 96847 Active 2023 Clifton Kay MD [address], [address], [place], [address] , [facility] 4 12:33:44 Anterior tibial stress syndrome 099076944 Active 2023 Missy baer, [facility] 4 16:31:10 Hemangiom a 258548332 Active 2024 Clifton Kay MD [address], [address], [place], [address] , [facility] 5 12:47:04 Problem Notes None recorded. Procedures Surgical History Date Name Laterality Status Provider Name and Address Organization Details Recorded Time 10/05/19 23 Ortho - Cortisone Injection completed Ras Alonso MD [address], [address], [place], [address], [facility] 10/04/2022 11:40:13 02/18/18 97 Carpal tunnel surgery completed Not Available [facility] 04/18/2022 05:00:09 02/18/18 92 Removal of ovarian cyst(s) completed Not Available [facility] 04/18/2022 05:00:09 02/18/18 78 Gallbladder Surgery completed Not Available [facility] 04/18/2022 05:00:09 Imaging Results Imaging Date Name Status LastModified by Organiz ation Details LastModified Time 08/29/2023 MAMMO, diagnostic, tomosynthesis, bilateral completed Information not available 09/16/2023 15:35:00 03/30/2024 US, duplex, abdomen completed Information not available 04/01/2024 12:47:10 05/11/2024 US, pelvis, complete completed [facility] [address] [facility] [address] [place], [address], Ph [phone] 05/13/2024 13:07:42 05/08/2024 US, pelvis completed Information no t available 05/21/2024 08:50:32 Procedure Notes None recorded. Medical Equipment None Reported. Allergies Allergen ID Allergen Name Allergen Category Reaction Reaction Severity Criticality Documentation Date Start Date Code Code System Note Provider Name and Address Organization Details Recorded Time 9287 trazodone medicatio n Not available Not available Not available 04/18/2022 14925 RxNorm tinni tis Not Available [facility] 3 05:15:09 9288 prednison e medicatio n Not available Not available Not available 04/18/2022 8640 RxNorm palpi tatio ns Not Available [facility] 3 05:15:09 9289 Product containin g penicilli n (product) medicatio n other Not available Not available 04/18/2022 97839 8001 SNOMED Not Available [facility] 3 05:15:10 9290 Lipitor medicatio n cough Not available Not available 04/18/2022 33032 5 RxNorm Not Available [facility] 3 05:15:10 9291 ezetimibe medicatio n abdominal pain Not available Not available 04/18/2022 38789 8 RxNorm Not Available [facility] 3 05:15:10 9292 codeine medicatio n rash Not available Not available 04/18/2022 2670 RxNorm Not Available [facility] 3 05:15:10 Medications Name Sig Start Date Stop Date Status Note LastModified by Organization Details LastModified Time carisoprod ol 350 mg tablet Take 1 tablet every day by oral route at bedtime. active Not Available Not Available No t Available cyclobenza elpidio 10 mg tablet Take 1 tablet every 8 hours by oral route as needed for 10 days. active Not Available Not Available No t Available prednisone 10 mg tablet Take by oral route. 01/08 completed Not Available Not Available Not Available doxycyclin e hyclate 100 mg capsule Take 1 capsule twice a day by oral route for 7 days. active Not Available Not Available No t Available trazodone 50 mg tablet TAKE 1 OR 2 TABLETS AT BEDTIME NEEDED active Not Available Not Available No t Available cetirizine 10 mg tablet Take 1 tablet every day by oral route. 02/14 completed Not Available Not Available Not Available azithromyc in 250 mg tablet TAKE 2 TABLETS BY MOUTH ON DAY, THEN TAKE 1 TABLET DAILY X 4 DAYS 02/07 completed Not Available Not Available Not Available medroxypro gesterone 2.5 mg tablet 1 TABLET BY MOUTH DAILY active Not Available Not Available No t Available hydrocodon e 5 mg-acetami nophen 325 mg tablet 01/19 completed Not Available Not Available Not Available Keflex 500 mg capsule Take 1 capsule every 12 hours by oral route. 01/01 completed Not Available Not Available Not Available ondansetro n HCl 8 mg tablet 01/19 completed Not Available Not Available Not Available ondansetro n HCl 4 mg tablet 01/19 completed Not Available Not Available Not Available famotidine 40 mg tablet Take 1 tablet every day by oral route at bedtime. active Not Available Not Available No t Available Medrol ([place]) 4 mg tablets in a dose pack as directed active Not Available Not Available No t Available bupivacain e HCl 0.5 % (5 mg/mL) injection solution Take 10 mg by injection route. 07/07 completed Not Available Not Available Not Available spironolac tone 100 mg tablet TAKE 1 TABLET BY MOUTH EVERY DAY 11/27 completed Not Available Not Available Not Available metronidaz ole 500 mg tablet active Not Available Not Available Not Available ciprofloxa jose 500 mg tablet Take 1 tablet twice a day by oral route. active Not Available Not Available No t Available omeprazole 40 mg capsule,de layed release Take 1 capsule every day by oral route. active Not Available Not Available No t Available tramadol 50 mg tablet Take 1 tablet every 8 hours by oral route as needed for 7 days. 12/29 completed Not Available Not Available Not Available ketorolac 30 mg/mL (1 mL) injection solution 08/2019 lot [id number] right hip 12/29 completed Not Available Not Available Not Available pantoprazo le 20 mg tablet,del ayed release TAKE 1 TABLET BY MOUTH EVERY DAY NEEDED 02/08 completed Not Available Not Available Not Available prednisone 10 mg tablets in a dose pack Take 1 tab by mouth, 3 times a day for 3 daysTake 1 tab by mouth 2 times a day for 2 daysTake 1 tab by mouth once a day for 1 day 11/23 completed Not Available Not Available Not Available amitriptyl ine 25 mg tablet TAKE 1 TABLET BY MOUTH EVERY DAY 2024 active YESY 5 NOV ok to rf Not Available Not Available Not Available estradiol 1 mg tablet TAKE 1 TABLET BY MOUTH EVERY DAY 05/08 completed Not Available Not Available Not Available Kenalog 10 mg/mL suspension for injection Take 10 mg by injection route. 07/07 completed [facility]: [phone] Not Available Not Available Not Available amitriptyl ine 10 mg tablet 1 TABLETS DAILY active Not Available Not Available No t Available Xanax 0.25 mg tablet Take 1 tablet 30 minutes prior to MRI repeat if needed 02/07 completed Not Available Not Available Not Available hyoscyamin e 0.125 mg disintegra ting tablet Place 1 tablet 4 times a day by sublingua l route. 2013 active Not Available Not Available Not Avai lable pantoprazo le 40 mg tablet,del ayed release TAKE ONE TABLET PO DAILY in AM prn 2023 active Not Available Not Available Not Avai lable sertraline 25 mg tablet Take 1 tablet every day by oral route. active Not Available Not Available No t Available etodolac 400 mg tablet Take 1 tablet twice a day by oral route for 30 days. active Not Available Not Available No t Available montelukas t 10 mg tablet TAKE 1 TABLET BY MOUTH EVERY DAY 2024 active YESY NOV 5 ok to rf Not Available Not Available Not Available zolpidem 5 mg tablet Take 1 tablet every day by oral route. 03/28 completed Not Available Not Available Not Available Levaquin 500 mg tablet Take 1 tablet every 24 hours by oral route for 7 days. active Not Available Not Available No t Available alprazolam 2 mg tablet 05/03 completed Not Available Not Available Not Available norethindr one acetate 5 mg tablet active Not Available Not Available No t Available estradiol 0.5 mg tablet TAKE 1 TABLET DAILY 06/02 completed Not Available Not Available Not Available azelastine 137 mcg (0.1 %) nasal spray [place] 2 sprays twice a day by intranasa l route. 04/04 completed Not Available Not Available Not Available Prempro 0.625 mg-2.5 mg tablet 01/19 completed Not Available Not Available Not Available diazepam 10 mg tablet 05/03 completed Not Available Not Available Not Available oxycodone- acetaminop hen 7.5 mg-325 mg tablet active Not Available Not Available Not Available clobetasol 0.05 % scalp solution active Not Available Not Available Not Available Lipitor 10 mg tablet Take 1 tablet every day by oral route. 12/29 completed Not Available Not Available Not Available fluticason e propionate 50 mcg/actuat ion nasal spray,susp ension INSTILL 1 SPRAY IN EACH NOSTRIL EVERY DAY 2024 active YESY NOV 5 ok to rf Not Available Not Available Not Available doxycyclin e hyclate 100 mg tablet TAKE 1 TABLET BY MOUTH TWICE A DAY X7 DAYS 07/07 completed Not Available Not Available Not Available dicyclomin e 10 mg capsule TAKE 1 CAPSULE 3 TIMES A DAY BEFORE MEALS 01/19 completed Not Available Not Available Not Available spironolac tone 50 mg tablet TAKE 1 TABLET BY MOUTH EVERY DAY 06/02 completed Not Available Not Available Not Available progestero ne micronized 100 mg capsule active Not Available Not Available Not Available ezetimibe 10 mg tablet Take 1 tablet every day by oral route. 08/25 completed Not Available Not Available Not Available cyclobenza elpidio 5 mg tablet TAKE 1 TABLET BY MOUTH 3 TIMES A DAY NEEDED 02/07 completed Not Available Not Available Not Available Prempro 0.45 mg-1.5 mg tablet TK 1 BY MOUTH EVERY DAY. 01/19 completed Not Available Not Available Not Available rosuvastat in 5 mg tablet Take 1 tablet every day by oral route. 11/27 completed Not Available Not Available Not Available rosuvastat in 10 mg tablet Take 1 tablet every day by oral route. 04/29 completed leg pain Not Available Not Available Not Available bupropion HCl XL 150 mg 24 hr tablet, extended release Take 1 tablet every day by oral route. active Not Available Not Available No t Available Prempro 0.3 mg-1.5 mg tablet 05/03 completed Not Available Not Available Not Available [place] Calcium Plus Vitamin D Take one tablet daily 2016 active Not Available Not Available Not Avai lable Vitamin C Take one tablet daily 10/16 completed Not Available Not Available Not Available estradiol take 1 mg daily 08/25 completed Not Available Not Available Not Available Stool Softener 05/03 completed Not Available Not Available Not Available norethin-e .estradiol triphasic qd 2012 active Not Available Not Available Not Avai lable Zyrtec 05/03 completed Not Available Not Available Not Available Centrum 05/03 completed Not Available Not Available Not Available Calcium 500 01/19 completed Not Available Not Available Not Available Vitamin Take one tablet daily 2016 active Hair, skin, and nails Not Available Not Available Not Available PreviDent 5000 Sensitive 1.1 %-5 % dental paste active Not Available Not Available Not Available estradiol 0.5 mg/0.5 gram (0.1 %) transderma l gel packet APPLY ONE PACKET TO SKIN ONCE DAILY, ALLOW TO FULLY AIR DRY. 11/27 completed Not Available Not Available Not Available estradiol 0.25 mg/0.25 gram (0.1 %) transderma l gel packet APPLY THE CONTENTS OF 1 PACKET ONTO THE INNER THIGH ONCE DAILY 09/15 completed Not Available Not Available Not Available omeprazole 20 mg tablet,del ayed release Take 1 tablet every day by oral route. 2013 active Not Available Not Available Not Avai lable 12 Hour Decongesta nt ER 120 mg tablet,ext ended release 120 MG ORALLY EVERY 12 HOURS NEEDED FOR NASAL CONGESTIO N 02/07 completed Not Available Not Available Not Available GaviLyte-N 420 gram oral solution active Not Available Not Available Not Available cetirizine 10 mg capsule Take 1 capsule every day by oral route. 02/08 completed Not Available Not Available Not Available Probiotic 05/03 completed Not Available Not Available Not Available ropivacain e (PF) 5 mg/mL (0.5 %) injection solution Take 20 mg by injection route. 02/07 completed [facility] [id number] [id number] Not Available Not Available Not Available Repatha SureClick 140 mg/mL subcutaneo us pen injector Inject 1 mL every 2 weeks by subcutane ous route. 09/25 completed Not Available Not Available Not Available Caltrate-D 3 Plus Minerals 02/07 completed Not Available Not Available Not Available Fish Oil 1,000 mg (120 mg-180 mg) capsule Take 1 capsule every day by oral route. 2017 active Not Available Not Available Not Avai lable Hair, Skin and Nails Advanced qd 02/07 completed Not Available Not Available Not Available estradiol 0.75 mg/0.75 gram (0.1%) transderma l gel packet APPLY 1 PACKET ONE TIME DAILY DIRECTED active Not Available Not Available No t Available Vitals Date Recorded Body height Body temperature Body mass index (BMI) Body weight Systolic blood pressure Diastolic blood pressure Provider Name and Address Organization Details Last Updated DateTime 4 154.94 cm 97.5 [degF] 24.2 kg/m2 42140.8 2 g 156 mm[Hg] 84 mm[Hg] AURELIO King [facility] 4 14:09:04 Date Recorded Body height Body mass index (BMI) Body weight Provider Name and Address Organization Details Last Updated DateTime 08/09/2023 154.94 cm 24.2 kg/m2 23600.82 g Missy Llanosmons [facility] 08/09/2023 14:24:57 Date Recorded Body weight Body mass index (BMI) Body height Body temperature Heart rate Oxygen saturation Oxygen saturation in Arterial blood by Pulse oximetry Systolic blood pressure Diastolic blood pressure Provider Name and Address Organization Details Last Updated DateTime 4 67552.9 7 g 25.5 kg/m2 154.94 cm 98.4 [degF] 78 /min 99 % 99 % 130 mm[Hg] 72 mm[Hg] Malinda Wilde [facility] 4 15:13:10 Date Recorded Body height Body mass index (BMI) Body weight Body temperature Heart rate Oxygen saturation Oxygen saturation in Arterial blood by Pulse oximetry Systolic blood pressure Diastolic blood pressure Provider Name and Address Organization Details Last Updated DateTime 4 154.94 cm 25.5 kg/m2 25286.9 7 g 97.9 [degF] 80 /min 97 % 97 % 144 mm[Hg] 80 mm[Hg] Aleshasaige Beltrán AURELIO hernandez [facility] 4 14:06:53 Date Recorded Body height Body mass index (BMI) Body weight Body temperature Heart rate Oxygen saturation Oxygen saturation in Arterial blood by Pulse oximetry Systolic blood pressure Diastolic blood pressure Provider Name and Address Organization Details Last Updated DateTime 5 154.94 cm 25.9 kg/m2 17857.1 5 g 97.8 [degF] 87 /min 97 % 97 % 120 mm[Hg] 76 mm[Hg] Pamela garcia [facility] 5 14:57:43 Social History Question Answer Notes LastModified by Organizat ion Details LastModified Time Tobacco Smoking Status Never Smoker Not Available [facility] 04/18/2022 04:56:26 What Is Your Level Of Alcohol Consumption? Occasional [id number] Information not available 04/18/2022 In The 14 Days Before Symptom Onset, Have You Had Close Contact With A Laboratory-confir med COVID-19 While That Case Was Ill? No [id number] Information not available 04/18/2022 In The 14 Days Before Symptom Onset, Have You Had Close Contact With A Person Who Is Under Investigation For COVID-19 While That Person Was Ill? No [id number] Information not available 04/18/2022 Do You Or Have You Ever Used E-cigarettes Or Vape? 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 10/16/2021 [id number] Information not available 04/18/2022 Do You Or Have You Ever Used Smokeless Tobacco? Never Used Smokeless Tobacco [id number] Information not available 04/18/2022 Sex: Unknown Functional Status None recorded. Mental Status None recorded. Family History Relationship Description Onset Age of this Age Resolved Age Notes LastModified by Organization Details LastModified Time Sister Family history of malignant neoplasm [id number] Not available 04/18/2022 05:00:12 Mother Hypertensive disorder [id number] Not available 04/18/2022 05:00:12 Mother Family history of blood coagulation disorder [id number] Not available 04/18/2022 05:00:12 Father Hypertensive disorder [id number] Not available 04/18/2022 05:00:12 Medical History Condition Response ARTHRITIS Y Gynecological HistoryNo gynecological history recorded. Obstetrics History GPAL:G 0 P 0 0 0 0 Immunizations Vaccine Type Date Status Note Provider Nam e and Address Organization Details Recorded Time Influenza, split virus, trivalent, preservative 3 completed Not Available [facility] 04/18/2022 05:14:48 Influenza, split virus, quadrivalent, PF 7 completed Not Available [facility] 04/18/2022 05:14:48 Influenza, split virus, quadrivalent, PF 6 completed Not Available [facility] 04/18/2022 05:14:48 Influenza, split virus, quadrivalent, preservative 5 completed Not Available [facility] 04/18/2022 05:14:48 Influenza, split virus, trivalent, preservative 4 completed HEATHER Sutton, [place] 05/09/2023 15:05:40 Influenza, split virus, quadrivalent, preservative 7 completed Not Available [facility] 04/18/2022 05:14:48 Influenza, split virus, trivalent, preservative 3 completed HEATHER Sutton, [place] 05/09/2023 15:05:40 Past Encounters Encounter ID Performer Location Encounter Start Date Encounter Closed Date Diagnosis/Indication Diagnosis SNOMED-CT Code Diagnosis ICD10 Code Diagnosis Note [id number] Clifton Kay MD Deonna_[facility] Internal Med [facility] [address] [place] [address] 08/25/2020 00:00:00 08/25/2020 16:35:24 [id number] MD SRAVANI Wheatley_[facility] Internal Med [address] [place] [address] 11/23/2020 00:00:00 11/23/2020 15:45:18 [id number] MD SRAVANI Wheatley_[facility] Internal [facility] [address] [place] [address] 02/14/2021 00:00:00 02/14/2021 16:17:24 [id number] MD SRAVANI Wheatley_[facility] Internal [facility] [address] [place] [address] 04/04/2021 00:00:00 04/04/2021 15:59:56 [id number] MD SRAVANI Wheatley_[facility] Internal [facility] [address] [place] [address] 05/05/2021 00:00:00 05/05/2021 11:23:05 [id number] MD SRAVANI Wheatley_[facility] Internal Med [address] [place] [place] [address] 10/06/2021 00:00:00 10/06/2021 16:12:45 [id number] Ras Alonso MD S_[facility] [address] [place] [address] 10/16/2021 00:00:00 10/16/2021 10:33:35 [id number] MD SRAVANI Baez_[facility] [place] [address] [place] [address] 11/13/2021 00:00:00 11/13/2021 11:28:31 [id number] Ras Alonso MD [facility] [place] [address] [place] [address] 12/07/2021 00:00:00 12/07/2021 10:54:17 [id number] MD HANH WheatleyS_[facility] [address] [place] [address] 01/02/2022 00:00:00 01/02/2022 14:40:18 [id number] MD HANH WheatleyS_[facility] Internal Med [address] [place] [address] 01/30/2022 00:00:00 01/30/2022 09:34:03 [id number] Clifton Kay MD [facility] Internal Med [address] [place] [address] 03/28/2022 00:00:00 03/28/2022 17:12:59 [id number] Clifton Kay MD [facility] Internal Med [address] [place] [address] 09/11/2022 12:18:45 09/11/2022 12:56:26 Headache 32142406 R51.9 persistent headache after a falldoes not want CT scan with contrast Low back pain 887185675 M54.50 stretching [id number] Clifton Kay MD [facility] Internal Med [address] [place] [address] 09/25/2022 14:20:45 09/25/2022 14:56:55 Irritable bowel syndrome 63029299 K58.9 stable Hyperlipidemia 16531761 E78.5 cam't take statins, on fish oil, Gastroesop hageal reflux disease without esophagitis 502599033 K21.9 no more symptoms Acne 98207306 L70.9 under control Rhinitis 90546933 J00 meds help Adult heal th examination 401337879 Z00.00 gets mammogram and dexa at gyne- up to date, gets at [facility], dr Pacheco, internal hemorrhoid sFLU- Does not wantCOVID- Does not want [id number] Ras Alonso MD [facility] [place] [address] [place] [address] 10/04/2022 11:05:14 10/04/2022 11:45:32 Trochanteric bursitis of left hip 0350359862 22253 M70.62 Pain of le ft hip joint 6316751111 99651 M25.552 Bilateral sacroiliac joint pain 4633230994 9388382 M53.3 Pain of ri ght hip joint 3986493482 85418 M25.884 [id number] Ignacio Escalera MD [facility] [place] [address] [place] [address] 11/13/2022 15:12:58 11/13/2022 17:22:36 Pain of bilateral hip joints 8304850735 6325912 M25.551 M25.552 Bilateral trochanteric bursitis 9971248400 4715400 M70.61 M70.62 [id number] Ignacio Escalera MD [facility] [place] [address] [place] [address] 12/25/2022 14:57:29 12/25/2022 16:02:09 Pain of bilateral hip joints 4306588472 5960328 M25.551 M25.552 Bilateral trochanteric bursitis 3876160305 2732856 M70.61 M70.62 [id number] Clifton Kay MD [facility] Internal Med [address] [place] [address] 02/07/2023 15:26:35 02/07/2023 16:08:22 Adult health examination 525316406 Z00.00 Z13.220 Mammogram- 07/05/2022 and dexa at gyne- up to date, gets at [facility], dr Pacheco, internal hemorrhoid sFLU- Does not wantCOVID- Does not want Irritable bowel syndrome 03591956 K58.9 stable Hyperlipidemia 52436123 E78.5 will try low dose rosuvastat in, on fish oil, low fat diet discussed Gastroesop hageal reflux disease without esophagitis 830669646 K21.9 no more symptoms Acne 97928625 L70.9 under control Rhinitis 04206181 J00 meds help Liver func tion tests outside reference range 873411134 R94.5 needs more w/u Gastroesop hageal reflux disease 736916841 K21.9 [id number] Clifton Kay MD [facility] Internal Med [address] [place] [address] 02/20/2023 10:43:00 02/20/2023 11:54:43 Liver function tests outside reference range 287382596 R94.5 needs more w/u due to positive JADA [id number] Clifton Kay MD [facility] Internal Med [address] [place] [address] 05/09/2023 14:46:19 05/09/2023 16:01:56 Adult health examination 382710299 Z00.00 Z13.220 Mammogram- 07/05/2022 and dexa at gyne- up to date, gets at [facility] sc[facility] 2015, dr Pacheco, internal hemorrhoid sFLU- Does not wantCOVID- Does not want Irritable bowel syndrome 33324475 K58.9 stable Hyperlipidemia 50269707 E78.5 can not take statins Gastroesop hageal reflux disease without esophagitis 672602579 K21.9 no more symptoms Acne 83690292 L70.9 under control Rhinitis 08775574 J00 meds help Liver func tion tests outside reference range 505529838 R94.5 labs Gastroesop hageal reflux disease 582617148 K21.9 stable Depression screening 171 811952 Z13.31 [id number] Brady Mcgrath MD [facility] [place] [address] [place] [address] 06/06/2023 14:31:16 06/06/2023 15:55:50 Pain of left hand 4029108654 77563 M79.642 Pain in bi lateral lower legs 3792556527 9710341 M79.661 M79.662 Flexor ten osynovitis of thumb 640519520 M65.036 [id number] Brady Mcgrath MD [facility] [place] [address] [place] [address] 06/18/2023 14:00:50 06/18/2023 14:22:55 Pain of left hand 1973820068 62168 M79.642 Flexor ten osynovitis of thumb 182208255 M65.719 [id number] Clifton Kay MD S_[facility] Internal Med [address] [place] [address] 07/01/2023 08:50:09 07/01/2023 09:37:51 Impacted cerumen in left ear 7613835924 937488 H61.22 needs cleaning after using debrox ear drops [id number] Clifton Kay MD [facility] Internal Med [facility] [address] [place] [address] 07/08/2023 14:03:01 07/08/2023 14:33:58 Impacted cerumen in left ear 8840292204 794748 H61.22 clean Rhinitis 64319961 J00 keep using nasal spray [id number] Brady Mcgrath MD [facility] [place] [address] [place] [address] 08/09/2023 14:19:36 08/09/2023 15:32:44 Pain in bilateral lower legs 2591188514 3924611 M79.661 M79.662 Pain of left hand 582880 5504 73004 M79.642 Flexor ten osynovitis of thumb 692955196 M65.912 [id number] Clifton Kay MD [facility] Internal [facility] [address] [place] [address] 09/16/2023 14:47:03 09/16/2023 15:49:42 Hyperlipidemia 32758423 E78.5 labs in 6 months Adult [facility] th examination 935223985 Z00.00 Z13.220 Mammogram- 07/05/2022 and dexa at gyne- up to date, gets at [facility] 2015, dr Pacheco, internal hemorrhoid sFLU- Does not wantCOVID- Does not want Irritable bowel syndrome 09060005 K58.9 stable Gastroesop hageal reflux disease without esophagitis 961383474 K21.9 no more symptoms Acne 96577415 L70.9 under control with meds Rhinitis 51406189 J00 meds help Liver func tion tests outside reference range 697044808 R94.5 improved Gastroesop hageal reflux disease 938210351 K21.9 stable [id number] Clifton Kay MD [facility] Internal Med [facility] [address] [place] [address] 11/28/2023 14:00:50 11/28/2023 14:21:32 Abnormal blood pressure 26441938 Z01.31 it could be related to stress,derrick ch dietno meds neededbrin g her machine to compare Hyperlipidemia 60078806 E78.5 off statins, diet discussed, labs with next visit and decide about meds [id number] Clifton Kay MD [facility] Internal [facility] [address] [place] [address] 06/02/2024 14:41:14 06/02/2024 15:58:03 Hyperlipidemia 39771010 E78.5 watching diet Adult heal th examination 188974857 Z00.00 Z13.220 Mammogram- 07/05/2022 and dexa at gyne- up to date, gets at [facility] 2015, dr Pacheco, internal hemorrhoid sFLU- Does not wantCOVID- Does not want Irritable bowel syndrome 38583621 K58.9 stable Acne 04618115 L70.9 under control without meds Rhinitis 98951107 J00 meds help Liver func tion tests outside reference range 812587903 R94.5 improved according to pt after stopping estradiol Gastroesop hageal reflux disease 629596073 K21.9 stable Health Concerns Section Related Observation LastModified by Organization Detai ls LastModified Time None Recorded Concern Status LastModified by Organization Details LastModified Time None Recorded Advance Directives Directive None Recorded Payers Encounter Date Sequence Insurance Name Policy Number Policy Pop Covered Member ID Pop Member ID Guarantor Name 07/08/2023 1 () Marlyn Cell [id number] Marlyn Cell 08/09/2023 1 () Marlyn Cell [id number] Marlyn Cell 09/16/2023 1 () Marlyn Cell [id number] Marlyn Cell 11/28/2023 1 () Marlyn Cell [id number] Marlyn Cell 06/02/2024 1 () Marlyn Cell [id number] Marlyn Cell Notes Date Note Type Note Provider Name and Address Organization Details Recorded Time 07/08/2023 text/html She is here toda y to have her ears irrigated. She no longer needs it done because she had went to Urgent Care over the week end.She is still congested and has a headache. was giving her Afrin and told her to use it for 2 daysB/p today is a little elevated, Does c/o having a ALDRIDGE Clifton Kay MD [address], [place], [address], [place] 07/08/2023 14:24:34 08/09/2023 text/html Patient returns for recheck of her ongoing aches and pains. I have seen her for pain bilateral hips over the trochanteric regions also some flexor tenosynovitis in the left thumb with no capo locking or catching and also pain in the bilateral arias region that appeared to be possibly exercise induced I thought maybe she had either arias splints or exercise induced inflammation/mild compartment syndrome type pain. She states her pain certainly gets worse if she tries to do heavier more repetitive exercise. I had advised her to see a cold working inspector as she was having multiple complaints. She actually saw a dtp operator for another issue and had some lab work done. She brings those results with her today. 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 Anti scleroderma 70 antibodies also were significantly elevated at 6.6 normal ranges 0 to 0.9. She has several findings on lab results as listed that may indicate some sort of autoimmune factor playing into her aches and pains. She had no trauma or injury to any of the above sites she states her hip pain over the lateral trochanteric regions has resolved with time still having some pain in the lower extremities below the knees. Denies any fevers chills night sweats no constitutional symptoms otherwise feels well she is 5 ft 3 in tall 140 lb and is quite active. She states she has been scheduled to see a cold working inspector after being referred by the dtp operator she has awaiting an visit there she comes in today to talk about further treatment options and her lab work today with me. PINO Bailey [address], [place], [address], [place] 08/09/2023 16:15:47 09/16/2023 text/html Pt is here for 4 month f/u. Pt compliant to meds Hyperlipidemia- was on lipitor, stopped due to myalgia, labs 08/11 showed LDL 165, able to tolerate low dose rosuvastatin every otherdayMeds- Fish oil 1,000 mg dailyRosuvastatin 5 mg qodMenopause- on meds, still gets hot flashesMeds- Estradiol 1 mg dailyGERD- symptoms are back, now on pantoprazole prnIBS-on amitriptyline at night, also helps her sleepAnxiety- was taking alprazolam as needed in the past, not any moreAcne- on med and it helpsMeds- Spironolactone 50 mg dailyAllergy- better with medsMeds- Montelukast 10 mg daily, Flonase Clifton Kay MD [address] [facility], [place], [address], [employer] [facility] [employer] 09/16/2023 15:44:31 11/28/2023 text/html Pt is here today for elevated blood pressure.176/86, 166/96. Started Saturday and has been having headaches.This morning it was 146/84. Last night was 170/90She does admit to being more stress latelyToday it is 144/80 no cp or sob, no edema Poly Operator took her off the Statin and to just watch her diet Clifton Kay MD [address] [facility], [place], [address], [employer] 11/28/2023 14:23:47 06/02/2024 text/html Pt is here for 4 month f/u. Pt compliant to meds Pt is not fasting Hyperlipidemia- was on lipitor, stopped due to myalgia, labs02/10 showed LDL 146, watching diet, advised to do exercises.Meds- Fish oil 1,000 mg daily Menopause- on meds, no more hot flashes, getting vaginal cream, NOT on Estradiol 1 mg daily any more due to high LFTGERD- symptoms are back, now on pantoprazole prnIBS-on amitriptyline at night, also helps her sleepAnxiety- was taking alprazolam as needed in the past, not any moreAcne- betterWAS on Spironolactone 50 mg dailyAllergy- better with medsMeds- Montelukast 10 mg daily, Flonase LFT- better since stopped taking estradiol Clifton Kay MD [address] [place] [address], [place], [address], [facility] 06/02/2024 15:31:17 OBGyn Episode No OBEpisode recorded.
--- OUTSIDE RECORDS SUMMARY | 2024-06-22 00:48 | XMS_ITS | Clinical Summary ---
Author Organization [facility] Address [address] [facility] [address] Care Team Providers Care Manager Corporate Strategy Name Role Phone Unavailable Primary Care Provider [...] Comments DTAP/TDAP/TD VACCINES (1 - Tdap) 07/08/1979 HPV/Cotest (21-29) 1981 CERVICAL CANCER SCREENING 1990 HPV/Cotest (30-65) 1990 PAP SMEAR 1990 COLORECTAL SCREENING 2005 Colorectal Cancer Screening 2005 FIT-DNA Q 3 years 2005 FIT/FOBT Q 1 year 2005 Flex Sig/CT Colonography Q 5 years 2005 ZOSTER VACCINE (1 of 2) 2010 BREAST CANCER SCREENING 01/10/2022 01/11/20, 01/10/2021, 08/12/2019, Additional history exists INFLUENZA VACCINE (#1) 2023 RSV VACCINE (60+ or ) (1 - 1-dose 75+ series) 07/08/2035
--- OUTSIDE RECORDS SUMMARY | 2024-06-22 00:48 | XMS_ITS | Continuity of Care Document ---
Author Organization [facility] Address [address] [place] [address] [place] [address] Phone Care Team Providers Care Filtration Plant Operator Name Role Phone Brendan Wills DO Unavailable Unavailable Advance Directives Directive Yes / No Effective Date File Name No Information Encounters Encounter Description Practice Location Reason(s) For Visit Diagnoses Date Provider Providers Copied on Encounter [facility], [address], [place], [place], [id number], [place] tel:[phone] [facility] No Information Johann Chu. [address] [facility], [place], [address], [place]. tel:[phone] Family History Family Member Type Diagnosis Age [...]
[2024-06-22 06:20] VITALS: BMI 24.9
--- NOTE | 2024-06-22 06:46 | P.PNAN_ITS ---
Anes - Initial Pre Proc Eval Procedure: Operation Date: 06/22/24 08:15 Proposed Procedures p Hysteroscopy, Dilation and Curettage - Salma Winter MD Date/Time: 06/22/24 06:46 Surgeon: Salma Winter MD Pre Op Diagnosis: post menopausal bleeding Patient Data Age: 63 Gender: F Height: 1.56 m Weight: 60 kg Allergies Allergy/AdvReac Type Severity Reaction Status Date / Time Penicillins Allergy Intermediate ITCHING Verified 06/09/24 10:25 codeine Allergy Unknown Vomiting Verified 06/09/24 10:25 prednisone AdvReac Intermediate TACHYCARDIA Verified 06/09/24 10:25 Home Medications ?Medication ?Instructions ?Recorded ?Confirmed ?Type medroxyprogesterone 2.5 mg tablet 2.5 mg PO HS 04/18/21 06/09/24 History pantoprazole 40 mg tablet,delayed 40 mg PO QAM 04/18/21 06/09/24 History release montelukast 10 mg tablet 10 mg PO DAILY 01/12/23 06/09/24 History fluticasone propionate 50 1 spray intranasal DAILY 06/21/23 06/09/24 History mcg/actuation nasal spray,suspension amitriptyline 25 mg tablet 25 mg PO HS 06/09/24 06/09/24 History estradiol 0.25 mg/0.25 gram (0.1 0.25 mg topical DAILY 06/09/24 06/09/24 History %) transdermal gel packet Patient hx anesthesia problems: none Family hx anesthesia problems: none Results Review: All pre-operative results and documents have been reviewed as part of the pre- operative evaluation. [facility] Past Medical History Medical History (Updated 04/07/24 @ 10:31 by Tree Crump MD) Elevated transaminase level GERD (gastroesophageal reflux disease) Hx of gallstones Surgical History Surgical History Hx of carpal tunnel repair Hx of ovarian cystectomy History of mastopexy Hx of breast augmentation Family History Family History Sibling Family history of lung cancer Family history of primary malignant neoplasm of liver Social History Social History (Updated 04/07/24 @ 10:17 by Leah Salmon MA) Smoking status: Never smoker Alcohol intake: never Living arrangements: with family Spiritual care concerns: No Anes - Eval Final PreProcedure Day of Procedure 06/22/24 06:46 Patient weight: normal Heart: regular rate and rhythm Lungs: clear to auscultation and normal air movement Airway: Mallampati scale class II Neurological: alert and oriented Last oral intake: >/= 8 hours ASA classification: II Emergent: no Anesthetic plan: proceed Anesthesia type and monitoring: general GIVS and standard monitoring Results Review: All pre-operative results and documents have been reviewed as part of the pre- operative evaluation. Informed Consent: The patient's anesthetic plan and its attendant risks and benefits were discussed with the patient/family/POA. Questions were solicited and answers provided to the satisfaction of the patient/family/POA.
[2024-06-22] MEDS: ACETAMINOPHEN 500 MG TABLET 1000 MG PO (07:00)
[2024-06-22] MEDS: LACTATED RINGERS 1,000 ML 30 ML IV CONT (07:20)
--- NOTE | 2024-06-22 07:22 | WPDHPUPDATE1 ---
History and Physical Update Update Date/Time: 06/22/24 07:22 History and Physical has been reviewed, including an updated exam of the patient. There are NO changes in the patient's condition. Risks, benefits, and alternatives have been discussed and questions answered. Patient agrees to proceed with procedure.
--- NOTE | 2024-06-22 07:22 | PM.HPGS ---
History of Present Illness History of Present Illness Consent: Risks, benefits, and alternatives have been discussed and questions answered. Patient agrees to proceed with procedure. Chief complaint: post menopausal bleeding Narrative: Marlyn Valverde is a 63 year old female postmenopausal bleeding. Pelvic ultrasound reveals a thickened endometrium. It was recommended to undergo D&C hysteroscopy. Risks of infection, bleeding, perforation, and possible pathology were reviewed. Patient voices understanding and agrees to proceed. [facility] Past Medical History Medical History (Updated 06/22/24 @ 07:28 by Salma Winter MD) (normal spontaneous vaginal delivery) x5 Elevated cholesterol GERD (gastroesophageal reflux disease) Surgical History Surgical History (Updated 06/22/24 @ 07:27 by Salma Winter MD) History of D&C 1991 spontaneous History of hysteroscopy 2014 History of bilateral tubal ligation History of cholecystectomy Hx of carpal tunnel repair Hx of ovarian cystectomy History of mastopexy Hx of breast augmentation Family History Family History Sibling Family history of lung cancer Family history of primary malignant neoplasm of liver Social History Social History (Updated 04/07/24 @ 10:17 by Leah Salmon MA) Smoking status: Never smoker Alcohol intake: never Living arrangements: with family Spiritual care concerns: No Meds Home Medications and Allergies Home Medications ?Medication ?Instructions ?Recorded ?Confirmed ?Type medroxyprogesterone 2.5 mg tablet 2.5 mg PO HS 04/18/21 06/09/24 History pantoprazole 40 mg tablet,delayed 40 mg PO QA 04/18/21 06/09/24 History release montelukast 10 mg tablet 10 mg PO DAILY 01/12/23 06/09/24 History fluticasone propionate 50 1 spray intranasal DAILY 06/21/23 06/09/24 History mcg/actuation nasal spray,suspension amitriptyline 25 mg tablet 25 mg PO HS 06/09/24 06/09/24 History estradiol 0.25 mg/0.25 gram (0.1 0.25 mg topical DAILY 06/09/24 06/09/24 History %) transdermal gel packet Allergies Allergy/AdvReac Type Severity Reaction Status Date / Time Penicillins Allergy Intermediate ITCHING Verified 06/09/24 10:25 codeine Allergy Unknown Vomiting Verified 06/09/24 10:25 prednisone AdvReac Intermediate TACHYCARDIA Verified 06/09/24 10:25 Exam Const: General: healthy appearing and alert Orientation/consciousness: patient oriented x3 Resp: Effort & Inspection: normal respiratory effort GI: GI Palp: Yes Soft to palpation, No Tenderness to palpation present (GI) and No Palpable mass present : External Female Exam: normal external appearance Speculum Exam - Vagina: normal appearance of the vagina and normal vaginal discharge Speculum Exam - Cervix: normal appearance of the cervix Bimanual exam- vagina & uterus: uterine size normal and consistency normal Bimanual Exam- Adnexa, other: normal adnexae and No adnexal tenderness Neuro: General: patient oriented x3 Assessment and Plan Assessment and plan (1) Post-menopausal bleeding: Code(s): N95.0 - Postmenopausal bleeding Status: Acute Assessment and Plan: plan to proceed with D&C hysteroscopy
[2024-06-22 07:35] VITALS: BP 130/69; PULSE 75; RESP 16; TEMP 36.3; O2SAT 100
--- NOTE | 2024-06-22 08:22 | W.PM.PROC2 ---
Procedure Note - Detailed Date of Procedure 06/22/24 Pre-op Diagnosis post menopausal bleeding Post-op Diagnosis Same Procedure Performed D&C hysteroscopy with removal of polyp Surgeon Salma Winter MD Anesthesia MAC Findings Uterus sounds to 8cm. Cervix is stenotic. The endometrium appears atrophic except for a left cornua polyp. Description of Procedure The patient was taken to the operating room and placed under anesthesia in the dorsal lithotomy position. She was prepped and draped in the usual sterile fashion. [place] speculum was placed in the vagina and the cervix grasped on the anterior lip with a tenaculum. The cervix is stenotic and required a Hegar dilator to open. The uterus was then sounded to 8cm. The hysteroscope was placed and with the above-stated findings the small Aveta resection device is placed and the polyp removed in its entirety. The hysteroscope was then removed and the sharp curette used to curette the endometrium until a good uterine cry was noted in all areas. All instruments were then removed. The patient was awakened from anesthesia and taken to recovery in stable condition. Sponge, needle, and instrument counts are correct per the OR staff. Estimated Blood Loss 5 Drains No Packing No Pathology Yes (Endometrial curettings and shavings) Complications No immediate complications Condition Stable Disposition PACU
[2024-06-22 08:24] VITALS: BP 116/68; PULSE 75; RESP 16; O2SAT 100
[2024-06-22 08:55] VITALS: BP 156/84; PULSE 79
[2024-06-22 09:25] VITALS: BP 156/84; PULSE 79
== END 2024-06-22 09:35 | disposition home or self-care (01) ==
PROVIDERS: PCP Internal Medicine; Visit Provider Obstetrics & Gynecology Gynecology
PROC: 0U5B8ZZ Destruction of Endometrium, Via Natural or Artificial Opening Endoscopic (ICD-10-PCS; CPT 58563; principal; 2024-06-22 08:15)
DX: N84.0 Polyp of corpus uteri (principal); N88.2 Stricture and stenosis of cervix uteri; E78.00 Pure hypercholesterolemia, unspecified; K21.9 Gastro-esophageal reflux disease without esophagitis; Z98.890 Other specified postprocedural states; Z98.51 Tubal ligation status; Z90.49 Acquired absence of other specified parts of digestive tract; Z87.19 Personal history of other diseases of the digestive system; Z80.1 Family history of malignant neoplasm of trachea, bronchus and lung; Z80.0 Family history of malignant neoplasm of digestive organs
CPT/HCPCS: 58558; 88305; A9270; J2003; J2250; J2704; J7120

== ENCOUNTER 2024-10-26 11:33 | Outpatient (CLI) | payer OTHER, SELFPAY ==
--- OUTSIDE RECORDS SUMMARY | 2001-02-04 07:45 | XMS_ITS | Continuity of Care Document ---
Author Organization [facility] Address [id number] [place] [address] [place] [address] Phone Care Team Providers Care Equipment Monitor Phototypesetting Name Role Phone Brendan Wills DO Unavailable Unavailable Advance Directives Directive Yes / No Effective Date File Name No Information Encounters Encounter Description Practice Location Reason(s) For Visit Diagnoses Date Provider Providers Copied on Encounter [facility], [address] [place], [place], [id number], [place] tel:[phone] [facility] No Information Johann Chu. [id number] [facility], [place], [address], [place]. tel:[phone] Family History Family Member Type Diagnosis Age At Onset No Information Payers Payer name Insurance type Covered democrat ID Authoriza tion(s) No Information Social History Type Description Quantity Date Captured Comments Sex Female Smoking Status No Information Chief Complaint And Reason For Visit No Information Reason For Referral Reason For Referral No Information History Of Present Illness Encounter Date Complaint History Of Prese nt Illness No Information Functional Status Date Functional Assessmen t No Information Instructions Date Instruction Additional Infor mation No Information Assessments Type Assessment Date No Information Patient Care Teams Name Effective Dates (start - stop) Status Members No Information
--- OUTSIDE RECORDS SUMMARY | 2024-10-26 11:54 | XMS_ITS | Clinical Summary ---
Author Organization [facility] Address [address] [place] [id number] Care Team Providers Care Grinder Dresser Name Role Phone Daquan Byrnes Primary Care Provider [phone] Allergies No known active allergies Medications amitriptyline [...] Active Active Problems No known active problems Encounters Date Type Department Care Team Description 10/12/2024 Orders Only [facility] [address] [place] [phone] Keith Santiago MD 10/08/2024 Orders Only [facility] [address] [place] [phone] Keith Santiago MD from Last 3 Months Social History Tobacco Use Types Packs/Day Years Used Date Smoking Tobacco: Unknown Tobacco Cessation:Counseling Given: Not Answered Personal Safety Answer Date Recorded Getting School Help Needed Not on file 02/20 Comments Unknown Sex and Gender Information Value Date Recorded Sex Assigned at Not on file Legal Sex Female 1:30 PM DIGITAL MARKETING COORDINATOR Gender Identity Not on file Sexual Orientation Not on file Obstetrics History Last Filed Vital Signs Vital Sign Reading Time Taken Comments Blood Pressure 121/76 04/18/2023 10:35 AM DIGITAL MARKETING COORDINATOR Pulse 76 04/18/2023 10:35 AM DIGITAL MARKETING COORDINATOR Temperature - - Respiratory Rate - - Oxygen Saturation - - Inhaled Oxygen Concentration - - Weight 57.6 kg (127 lb) 04/18/2023 10:35 AM DIGITAL MARKETING COORDINATOR Height 157.5 cm (5' 2) 04/18/2023 10:35 AM DIGITAL MARKETING COORDINATOR Body Mass Index 23.23 04/18/2023 10:35 AM DIGITAL MARKETING COORDINATOR Plan of Treatment Health Maintenance Due Date Last Done Comments Breast Cancer Screening-Mammogram 1960 Cervical Cancer Screening 1960 Colon Cancer Screening-Colonoscopy 1960 Depression Screening 1960 Hepatitis C Screening 1960 DTaP/Tdap/Td Vaccine (1 - Tdap) 07/08/1971 Hepatitis B Screening 1978 Regular Well Visit/Exam 18-64 1978 Zoster Vaccine (1 of 2) 2010 Influenza Vaccine (#1) 2024 7, 12/08/2015, 12/24/2014, Additional history exists Pneumococcal vaccine <65 Aged Out No longer eligible based on patient's age to complete this topic Procedures Procedure Name Priority Date/Time Associated Diagnosis Comments SCAN - RADIOLOGY/IMAGING 10/12/2024 10:37 AM CDT SCAN - LABS 10/08/2024 12:01 PM CDT from Last 3 Months Results * SCAN - RADIOLOGY/IMAGING (10/12/2024 10:37 AM CDT) Anatomical Region Laterality Modality Other Keith Santiago MD Final Result * SCAN - LABS (10/08/2024 12:01 PM CDT) us Keith Santiago MD Final Result from Last 3 Months Insurance [facility] [place] [address] [place] [address] Care Teams Grinder Dresser Relationship Specialty Start Date End Date Daquan Byrnes PA [address] [place] [address] PCP - General Physician Chinese Teacher 02/20/23
--- OUTSIDE RECORDS SUMMARY | 2024-10-26 11:54 | XMS_ITS | Clinical Summary ---
Author Organization [facility] Address [address] [facility] [place] [address] Care Team Providers Care Scrap Drop Operator Name Role Phone Unavailable Primary Care Provider [...] 08/12/2019, Additional history exists INFLUENZA VACCINE (#1) 2024 RSV VACCINE (60+ or ) (1 - 1-dose 75+ series) 07/08/2035
[2024-10-26 13:01] LABS: Iron 62 ug/dL (37-170)
[2024-10-26 13:05] LABS: INR 1.0; Prothrombin Time 13.5 Seconds (11.1-14.7)
[2024-10-26 13:10] LABS: Percent Iron Saturation 18 % (20-50)
[2024-10-26 13:24] LABS: Alanine Aminotransferase 29 U/L (6-35); Albumin Level 4.6 g/dL (3.5-5.1); Alkaline Phosphatase 98 U/L (38-126); Aspartate Amino Transferase 47 U/L (14-36); Bilirubin,Total 0.5 mg/dL (0.2-1.3); Total Protein 8.1 g/dL (6.3-8.2)
[2024-10-26 13:37] LABS: Hepatitis B Surface Antigen Negative (Negative)
[2024-10-26 13:39] LABS: Immunoglobulin A 126 mg/dL (70-400)
[2024-10-26 13:42] LABS: HAV RESULT Negative (Negative); Hepatitis B Core IgM Result Negative (Negative)
[2024-10-26 13:42] LABS: Ferritin 20.90 ng/mL (11.1-264)
[2024-10-27 07:09] LABS: GGT 84 IU/L (0-60)
[2024-10-28 08:09] LABS: ANA by IFA Rfx Titer/Pattern Positive (.)
== END 2024-10-26 11:34 | disposition home or self-care (01) ==
LOC: ANHGOSHLAB 11:34
PROVIDERS: PCP Internal Medicine; Visit Provider Nurse Practitioner Family
DX: R74.01 Elevation of levels of liver transaminase levels (principal)
CPT/HCPCS: 36415; 80074; 80076; 82103; 82105; 82390; 82728; 82784; 82977; 83540; 83550; 85610; 86015; 86038; 86376

== ENCOUNTER 2024-11-05 14:15 | Outpatient (CLI) | payer OTHER, SELFPAY ==
--- NOTE | ~2024-11-05 | MR_ITS ---
EXAMINATION: MR abdomen wo con DATE: 11/05/2024 14:57 INDICATION: Hepatomegaly, not elsewhere classified. TECHNIQUE: Magnetic resonance imaging (MRI) of the abdomen was performed without intravenous contrast. COMPARISON: Abdomen ultrasound 03/30/2024 FINDINGS: Breast implants are noted. There is an 8 mm mass of increased T2-weighted signal intensity in segment VIII of the liver that was hyperechoic on the prior ultrasound, likely a hemangioma. The gallbladder is absent. The spleen, pancreas, adrenal glands, and kidneys are normal. There are no dilated loops of bowel. There are no pathologically enlarged lymph nodes. There is no free intraperitoneal fluid. IMPRESSION: 1. No significant abnormality. Reviewed, dictated and finalized at location E.
== END 2024-11-05 14:16 | disposition home or self-care (01) ==
LOC: MICIMG 14:17
PROVIDERS: PCP Internal Medicine
DX: R16.0 Hepatomegaly, not elsewhere classified (principal)
CPT/HCPCS: 74181

== ENCOUNTER 2024-12-17 14:57 | Outpatient (CLI) | payer OTHER, SELFPAY ==
[2024-12-17 19:01] LABS: Hematocrit 40.6 % (37.0-47.0); Hemoglobin 12.8 g/dL (12.0-15.0); Immature Granulocyte Percent A 0.4 % (0-0.5); Lymphocytes Absolute Auto 2.04 K/mm3 (0.9-3.2); Mean Corpuscular HGB Conc 31.5 g/dl (32-36); Mean Corpuscular Hemoglobin 28.9 pg (26-34); Mean Corpuscular Volume 91.6 fl (80-100); Nucleated Red Blood Cells Absolute Auto 0.000 K/mm3 (0.0-0.012); Nucleated Red Blood Cells Perc 0.0 % (0.0-0.2); Platelet Count Result 218 k/mm3 (150-375); Red Blood Count 4.43 M/mm3 (4.2-5.4); White Blood Count 8.0 K/mm3 (4.5-10.0)
[2024-12-17 19:28] LABS: Alanine Aminotransferase 26 U/L (6-35); Albumin Level 4.1 g/dL (3.5-5.1); Alkaline Phosphatase 75 U/L (38-126); Anion Gap 5 mmol/L (4-12); Aspartate Amino Transferase 41 U/L (14-36); Bilirubin,Total 0.5 mg/dL (0.2-1.3); Blood Urea Nitrogen 12 mg/dL (7-17); CRP < 0.5 mg/dL (<1.0); Calcium 9.8 mg/dL (8.4-10.2); Carbon Dioxide 29 mmol/L (22-30); Chloride 100 mmol/L (98-107); Estimated Glomerular Filt Rate > 60; Glucose 77 mg/dL (65-110); Potassium 4.0 mmol/L (3.4-5.0); Sodium 134 mmol/L (137-145); Total Protein 7.1 g/dL (6.3-8.2)
[2024-12-17 19:58] LABS: Thyroid Stimulating Hormone 1.120 uIU/mL (0.465-4.680)
== END 2024-12-17 14:58 | disposition home or self-care (01) ==
LOC: ANHGOSHLAB 14:58
PROVIDERS: PCP Anesthesiology; Visit Provider Dermatology
DX: R21 Rash and other nonspecific skin eruption (principal)
CPT/HCPCS: 36415; 80053; 82085; 84443; 85025; 86140; 86225; 86235; 86381

== ENCOUNTER 2025-02-02 11:31 | Outpatient (CLI) | payer OTHER, SELFPAY ==
--- OUTSIDE RECORDS SUMMARY | 2025-02-02 13:57 | XMS_ITS | Clinical Summary ---
Author Organization [facility] Address [address] [facility] [place] [address] Care Team Providers Care Access Manager Name Role Phone Unavailable Primary Care Provider [...]
--- OUTSIDE RECORDS SUMMARY | 2025-02-02 13:57 | XMS_ITS | Clinical Summary ---
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 Gender Identity Not on file Sexual Orientation Not on file Last Filed Vital Signs Vital Sign Reading Time Taken Comments Blood Pressure 121/76 04/18/2023 10:35 AM PEOPLESOFT FUNCTIONAL ANALYST Pulse 76 04/18/2023 10:35 AM PEOPLESOFT FUNCTIONAL ANALYST Temperature - - Respiratory Rate - - Oxygen Saturation - - Inhaled Oxygen Concentration - - Weight 57.6 kg (127 lb) 04/18/2023 10:35 AM PEOPLESOFT FUNCTIONAL ANALYST Height 157.5 cm (5' 2) 04/18/2023 10:35 AM PEOPLESOFT FUNCTIONAL ANALYST Body Mass Index 23.23 04/18/2023 10:35 AM PEOPLESOFT FUNCTIONAL ANALYST Plan of Treatment Health Maintenance Due Date [...] patient's age to complete this topic Insurance [address] [place] [address] [address] [place] [address] Care Teams Marketing Officer Relationship Specialty Start Date End Date Daquan Byrnes PA [address] [place] [address] PCP - General Physician Shingle Shearing Machine Operator 02/20/23
[2025-02-02 19:15] LABS: Hematocrit 41.4 % (37.0-47.0); Hemoglobin 13.1 g/dL (12.0-15.0); Mean Corpuscular HGB Conc 31.6 g/dl (32-36); Mean Corpuscular Hemoglobin 28.6 pg (26-34); Mean Corpuscular Volume 90.4 fl (80-100); Platelet Count Result 218 k/mm3 (150-375); Red Blood Count 4.58 M/mm3 (4.2-5.4); White Blood Count 6.6 K/mm3 (4.5-10.0)
[2025-02-02 19:16] LABS: Alanine Aminotransferase 54 U/L (6-35); Albumin Level 4.1 g/dL (3.5-5.1); Alkaline Phosphatase 77 U/L (38-126); Anion Gap 4 mmol/L (4-12); Aspartate Amino Transferase 42 U/L (14-36); Bilirubin,Total 0.3 mg/dL (0.2-1.3); Blood Urea Nitrogen 14 mg/dL (7-17); Calcium 9.6 mg/dL (8.4-10.2); Carbon Dioxide 32 mmol/L (22-30); Chloride 101 mmol/L (98-107); Estimated Glomerular Filt Rate 59; Glucose 85 mg/dL (65-110); Potassium 4.6 mmol/L (3.4-5.0); Sodium 137 mmol/L (137-145); Total Protein 7.2 g/dL (6.3-8.2)
[2025-02-02 20:04] LABS: Immunoglobulin G 933 mg/dL (700-1600)
[2025-02-08 22:07] LABS: Phosphatidylethanol (PEth) Negative (.)
== END 2025-02-02 11:32 | disposition home or self-care (01) ==
LOC: ANHGOSHLAB 11:32
PROVIDERS: PCP Anesthesiology; Visit Provider Nurse Practitioner Family
DX: R74.01 Elevation of levels of liver transaminase levels (principal)
CPT/HCPCS: 36415; 80053; 80321; 82784; 85027; 86381; G0480